=== PATIENT | male | born 1935 | race Caucasian/White ===

== ENCOUNTER 2017-09-24 10:36 | Observation (INO) | payer MEDICARE, BC ==
--- NOTE | 2017-09-24 11:05 | ED ---
General Adult HPI - General Stated complaint: Chest Pain Time Seen by Provider: 09/24/17 10:49 Source: patient, RN notes reviewed, old records reviewed Mode of arrival: EMS Limitations: no limitations - History of Present Illness Initial comments: This is an 79-year-old male the ER with chest pain. Patient with recurrent chest pain. Patient nitro with no help. Chest pain is persistent. Patient does have multiple risk factors for heart disease. Very concerned regarding causes chest pain cardiac in nature. No fever no cough or congestion, no current shortness of breath. No bowel pain nausea vomiting - Related Data Home Medications Medication Instructions Recorded Confirmed Ergocalciferol [Vitamin D2 50,000 unit PO TH 07/04/14 09/24/17 (DRISDOL)] amLODIPine [Norvasc] 5 mg PO DAILY 07/04/14 09/24/17 Carbidopa-Levodopa 25-100 mg 1 tab PO BID 09/24/17 09/24/17 [Sinemet 25-100] Dipyridamole-Aspirin 200-25 mg 1 tab PO BID 09/24/17 09/24/17 [Aggrenox] Losartan Potassium 50 mg PO DAILY 09/24/17 09/24/17 PARoxetine HCL [Paxil] 30 mg PO DAILY 09/24/17 09/24/17 metFORMIN HCL [Glucophage] 500 mg PO BID 09/24/17 09/24/17 rOPINIRole HCL [Requip] 0.5 mg PO BID 09/24/17 09/24/17 Allergies Allergy/AdvReac Type Severity Reaction Status Date / Time hydromorphone HCl AdvReac Nausea & Verified 09/24/17 11:37 [From Dilaudid] Vomiting Review of Systems ROS Statement: Those systems with pertinent positive or pertinent negative responses have been documented in the HPI. ROS Other: All systems not noted in ROS Statement are negative. Past Medical History Past Medical History: Diabetes Mellitus, Hyperlipidemia, Hypertension, Neurologic Disorder Additional Past Medical History / Comment(s): Parkinsons History of Any Multi-Drug Resistant Organisms: None Reported Past Surgical History: Adenoidectomy, Cholecystectomy, Hernia Repair, Prostate Surgery, Tonsillectomy Additional Past Surgical History / Comment(s): pmx: parkensons, essential tremor r arm Past Anesthesia/Blood Transfusion Reactions: No Reported Reaction Past Psychological History: No Psychological Hx Reported Smoking Status: Former smoker Past Alcohol Use History: None Reported, Rare Past Drug Use History: None Reported - Past Family History Father Family Medical History: Myocardial Infarction (ND) General Exam Limitations: no limitations General appearance: alert, in no apparent distress Head exam: Present: atraumatic, normocephalic, normal inspection Eye exam: Present: normal appearance, PERRL, EOMI. Absent: scleral icterus, conjunctival injection, periorbital swelling ENT exam: Present: normal exam, mucous membranes moist Neck exam: Present: normal inspection. Absent: tenderness, meningismus, lymphadenopathy Respiratory exam: Present: normal lung sounds bilaterally. Absent: respiratory distress, wheezes, rales, rhonchi, stridor Cardiovascular Exam: Present: regular rate, normal rhythm, normal heart sounds. Absent: systolic murmur, diastolic murmur, rubs, gallop, clicks GI/Abdominal exam: Present: soft, normal bowel sounds. Absent: distended, tenderness, guarding, rebound, rigid Extremities exam: Present: normal inspection, full ROM, normal capillary refill. Absent: tenderness, pedal edema, joint swelling, calf tenderness Back exam: Present: normal inspection Neurological exam: Present: alert, oriented X3, CN II-XII intact Psychiatric exam: Present: normal affect, normal mood Skin exam: Present: warm, dry, intact, normal color. Absent: rash Course Vital Signs 09/24/17 09/24/17 09/24/17 10:55 12:36 13:33 Temperature 98.6 F Pulse Rate 80 66 68 Respiratory 18 18 18 Rate Blood Pressure 134/82 146/86 153/84 O2 Sat by Pulse 94 L 98 96 Oximetry - Reevaluation(s) Reevaluation #1: 09/24/17 13:35 Medical record is reviewed Reevaluation #2: 09/24/17 13:35 Patient complains of chest pain EKG Findings - EKG Comments: EKG Findings:: EKG shows normal sinus rhythm rate of 79, NC 152, QRS 104, QTc 449 Medical Decision Making - Medical Decision Making 81 male the ER for evaluation positive chest pain. Patient be admitted for continued treatment of chest pain, cardiology evaluation - Lab Data Result diagrams: 09/24/17 11:10 09/24/17 11:10 Lab Results 09/24/17 09/24/17 09/24/17 Range/Units 11:10 11:10 11:10 WBC 6.3 (3.8-10.6) k/uL RBC 4.29 L (4.30-5.90) m/uL Hgb 13.4 (13.0-17.5) gm/dL Hct 39.6 (39.0-53.0) % MCV 92.3 (80.0-100.0) fL MCH 31.2 (25.0-35.0) pg MCHC 33.8 (31.0-37.0) g/dL RDW 13.6 (11.5-15.5) % Plt Count 166 (150-450) k/uL Neutrophils % 80 % Lymphocytes % 12 % Monocytes % 6 % Eosinophils % 1 % Basophils % 0 % Neutrophils # 5.0 (1.3-7.7) k/uL Lymphocytes # 0.8 L (1.0-4.8) k/uL Monocytes # 0.4 (0-1.0) k/uL Eosinophils # 0.1 (0-0.7) k/uL Basophils # 0.0 (0-0.2) k/uL PT (9.0-12.0) sec INR (<1.2) APTT (22.0-30.0) sec Sodium 140 (137-145) mmol/L Potassium 4.1 (3.5-5.1) mmol/L Chloride 104 (98-107) mmol/L Carbon Dioxide 30 (22-30) mmol/L Anion Gap 6 mmol/L BUN 30 H (9-20) mg/dL Creatinine 0.63 L (0.66-1.25) mg/dL Est GFR (CKD-EPI)AfAm >90 (>60 ml/min/1.73 sqM) Est GFR (CKD-EPI)NonAf >90 (>60 ml/min/1.73 sqM) Glucose 151 H (74-99) mg/dL Calcium 9.4 (8.4-10.2) mg/dL Magnesium 1.6 (1.6-2.3) mg/dL Total Bilirubin 0.3 (0.2-1.3) mg/dL AST 19 (17-59) U/L ALT 21 (21-72) U/L Alkaline Phosphatase 57 (38-126) U/L Total Creatine Kinase 33 L (55-170) U/L CK-MB (CK-2) 1.3 (0.0-2.4) ng/mL CK-MB (CK-2) Rel Index 3.9 Troponin I 0.014 (0.000-0.034) ng/mL Total Protein 6.3 (6.3-8.2) g/dL Albumin 4.0 (3.5-5.0) g/dL 09/24/17 Range/Units 11:10 WBC (3.8-10.6) k/uL RBC (4.30-5.90) m/uL Hgb (13.0-17.5) gm/dL Hct (39.0-53.0) % MCV (80.0-100.0) fL MCH (25.0-35.0) pg MCHC (31.0-37.0) g/dL RDW (11.5-15.5) % Plt Count (150-450) k/uL Neutrophils % % Lymphocytes % % Monocytes % % Eosinophils % % Basophils % % Neutrophils # (1.3-7.7) k/uL Lymphocytes # (1.0-4.8) k/uL Monocytes # (0-1.0) k/uL Eosinophils # (0-0.7) k/uL Basophils # (0-0.2) k/uL PT 10.1 (9.0-12.0) sec INR 1.0 (<1.2) APTT 22.4 (22.0-30.0) sec Sodium (137-145) mmol/L Potassium (3.5-5.1) mmol/L Chloride (98-107) mmol/L Carbon Dioxide (22-30) mmol/L Anion Gap mmol/L BUN (9-20) mg/dL Creatinine (0.66-1.25) mg/dL Est GFR (CKD-EPI)AfAm (>60 ml/min/1.73 sqM) Est GFR (CKD-EPI)NonAf (>60 ml/min/1.73 sqM) Glucose (74-99) mg/dL Calcium (8.4-10.2) mg/dL Magnesium (1.6-2.3) mg/dL Total Bilirubin (0.2-1.3) mg/dL AST (17-59) U/L ALT (21-72) U/L Alkaline Phosphatase (38-126) U/L Total Creatine Kinase (55-170) U/L CK-MB (CK-2) (0.0-2.4) ng/mL CK-MB (CK-2) Rel Index Troponin I (0.000-0.034) ng/mL Total Protein (6.3-8.2) g/dL Albumin (3.5-5.0) g/dL - Radiology Data Radiology results: report reviewed (Chest x-rays negative), image reviewed Critical Care Time Critical Care Time: Yes Total Critical Care Time: 31 Disposition Clinical Impression: Chest pain, Atypical chest pain, HTN (hypertension), Diabetes mellitus, Hyperlipemia Disposition: ADMITTED IP TO THIS [facility] Condition: Undetermined Instructions: Chest Pain (ED) Is patient prescribed a controlled substance at d/c from ED?: No Referrals: Maribel Murphy DO [Primary Care Provider] - 1-2 days
[2017-09-24 11:17] LABS: Basophils % (A) 0 %; Eosinophils # (A) 0.1 k/uL (0-0.7); Eosinophils % (A) 1 %; HCT 39.6 % (39.0-53.0); HGB 13.4 gm/dL (13.0-17.5); Lymphocytes # (A) 0.8 k/uL (1.0-4.8); Lymphocytes % (A) 12 %; MCH 31.2 pg (25.0-35.0); MCHC 33.8 g/dL (31.0-37.0); MCV 92.3 fL (80.0-100.0); Mean Platelet Volume 7.7; Monocytes # (A) 0.4 k/uL (0-1.0); Monocytes % (A) 6 %; Neutrophils % (A) 80 %; Platelet Count 166 k/uL (150-450); RBC 4.29 m/uL (4.30-5.90); RDW 13.6 % (11.5-15.5); WBC 6.3 k/uL (3.8-10.6)
[2017-09-24 11:29] LABS: ALT 21 U/L (21-72); AST 19 U/L (17-59); Alkaline Phosphatase 57 U/L (38-126); Anion Gap 6 mmol/L; Blood Urea Nitrogen 30 mg/dL (9-20); Calcium 9.4 mg/dL (8.4-10.2); Carbon Dioxide 30 mmol/L (22-30); Chloride 104 mmol/L (98-107); Glucose 151 mg/dL (74-99); Magnesium 1.6 mg/dL (1.6-2.3); Potassium 4.1 mmol/L (3.5-5.1); Sodium 140 mmol/L (137-145); Total Bilirubin 0.3 mg/dL (0.2-1.3); Total Protein 6.3 g/dL (6.3-8.2)
[2017-09-24 11:49] LABS: Partial Thromboplastin Time 22.4 sec (22.0-30.0); Prothrombin Time 10.1 sec (9.0-12.0)
[2017-09-24 11:54] LABS: Creatine Kinase MB 1.3 ng/mL (0.0-2.4); Troponin I 0.014 ng/mL (0.000-0.034)
--- NOTE | 2017-09-24 12:08 | XR ---
EXAMINATION TYPE: XR chest 2V DATE OF EXAM: 09/24/2017 COMPARISON: None HISTORY: 81-year-old male with chest pain TECHNIQUE: AP and lateral views FINDINGS: Heart normal size. Aorta and pulmonary vasculature within normal limits. No consolidation or pleural effusion. IMPRESSION: No acute cardiopulmonary process.
[2017-09-24] MEDS ORDERED: ASPIRIN 81 MG PO STA (13:33)
[2017-09-24] MEDS ORDERED: HEPARIN SODIUM,PORCINE 5,000 UNIT/ML 1 ML VIAL IV PRN (13:33)
[2017-09-24] MEDS ORDERED: NITROGLYCERIN SL TABS 0.4 MG TAB SUBLINGUAL PRN (13:33)
[2017-09-24] MEDS ORDERED: HEPARIN SODIUM,PORCINE 5,000 UNIT/ML 1 ML VIAL IV ONE (13:33)
[2017-09-24] MEDS ORDERED: HEPARIN SOD,PORK IN 0.45% NACL 25,000 UNIT in 0.45% NACL 1 500ML.BAG IV SCH (13:45)
--- NOTE | 2017-09-24 15:03 | P.HPIM ---
History of Present Illness H&P Date: 09/24/17 Chief Complaint: Chest pain This is a 81-year-old male, patient of Dr. Butt. He has a known past medical history of diabetes mellitus, hyperlipidemia, hypertension, CVA with some residual right-sided weakness and Parkinson's. Patient is a resident at [facility]. He reports having intermittent episodes of chest pain for about 10 days. He reports today's chest pain did not improve after 3 nitros therefore he came in for further evaluation. Patient reports the pain starting in the right side of the arm coming across the chest up into the left side of the jaw and down the left arm. He also is been having some nausea and an episode of vomiting today. Patient has no previous history of heart attack or cardiac stents. Patient had a stress test several years ago and wound reported as normal. Initial troponin was negative. EKG had shown a normal sinus rhythm with a left anterior fascicular block and nonspecific ST to T-wave abnormality. Chest x-ray showed no acute changes. Patient denies any shortness of breath. Denies any cough fever or chills or sweats. Denies any bowel movement changes or urinary symptoms. Patient is been placed on IV heparin and cardiology has been consulted. He'll be admitted to the observation floor. Patient was also started on aspirin and Lipitor in the ER Review of Systems Please refer to HPI otherwise unremarkable Past Medical History Past Medical History: CVA/TIA, Diabetes Mellitus, Hyperlipidemia, Hypertension, Neurologic Disorder Additional Past Medical History / Comment(s): Parkinsons, CVA with residual right-sided weakness History of Any Multi-Drug Resistant Organisms: None Reported Past Surgical History: Adenoidectomy, Cholecystectomy, Hernia Repair, Prostate Surgery, Tonsillectomy Additional Past Surgical History / Comment(s): pmx: parkensons, essential tremor r arm Past Anesthesia/Blood Transfusion Reactions: No Reported Reaction Past Psychological History: No Psychological Hx Reported Smoking Status: Former smoker Past Alcohol Use History: None Reported, Rare Past Drug Use History: None Reported - Past Family History Father Family Medical History: Myocardial Infarction (ND) Medications and Allergies Home Medications Medication Instructions Recorded Confirmed Type Ergocalciferol [Vitamin D2 50,000 unit PO TH 07/04/14 09/24/17 History (DAVY)] amLODIPine [Norvasc] 5 mg PO DAILY 07/04/14 09/24/17 History Carbidopa-Levodopa 25-100 mg 1 tab PO BID 09/24/17 09/24/17 History [Sinemet 25-100] Dipyridamole-Aspirin 200-25 mg 1 tab PO BID 09/24/17 09/24/17 History [Aggrenox] Losartan Potassium 50 mg PO DAILY 09/24/17 09/24/17 History PARoxetine HCL [Paxil] 30 mg PO DAILY 09/24/17 09/24/17 History metFORMIN HCL [Glucophage] 500 mg PO BID 09/24/17 09/24/17 History rOPINIRole HCL [Requip] 0.5 mg PO BID 09/24/17 09/24/17 History Allergies Allergy/AdvReac Type Severity Reaction Status Date / Time hydromorphone HCl AdvReac Nausea & Verified 09/24/17 11:37 [From Dilaudid] Vomiting Physical Exam Vitals: Vital Signs Temp Pulse Resp BP Pulse Ox 09/24/17 14:05 75 18 181/90 96 09/24/17 13:33 68 18 153/84 96 09/24/17 12:36 66 18 146/86 98 09/24/17 10:55 98.6 F 80 18 134/82 94 L Intake and Output 09/23/17 09/24/17 09/24/17 22:59 06:59 14:59 Other: Weight 63.503 kg Head normocephalic Neck supple Lungs clear to auscultation bilaterally no wheezing or crackles Heart regular rate and rhythm S1-S2, no rub or gallop Abdomen is soft nontender nondistended positive bowel sounds no hepatosplenomegaly Extremities no edema Neuro alert and orientated to 3 Results CBC & Chem 7: 09/24/17 11:10 09/24/17 11:10 Labs: Abnormal Lab Results - Last 24 Hours (Table) 09/24/17 09/24/17 09/24/17 Range/Units 11:10 11:10 11:10 RBC 4.29 L (4.30-5.90) m/uL Lymphocytes # 0.8 L (1.0-4.8) k/uL BUN 30 H (9-20) mg/dL Creatinine 0.63 L (0.66-1.25) mg/dL Glucose 151 H (74-99) mg/dL Total Creatine Kinase 33 L (55-170) U/L Assessment and Plan Assessment: 1. Chest pain: First troponin negative. EKG normal sinus rhythm with a left anterior fascicular block and nonspecific ST-T wave abnormality. Continue monitoring cardiac enzymes. Patient started on IV heparin, full aspirin and Lipitor. Cardiology consulted. Does have cardiac risk factors of diabetes hyperlipidemia and hypertension. Also past history of smoking quit 30 years ago. 2. Diabetes mellitus type 2: Hold metformin during hospitalization. Add NovoLog sliding scale coverage 3. Essential hypertension with elevated blood pressure in the ER. Continue to monitor. ER did place patient on metoprolol 25 mg twice a day. We'll resume patient's Norvasc and losartan 4. History of Parkinson's resume Sinemet 5. History of CVA resume Aggrenox GI prophylaxis Pepcid and DVT prophylaxis IV heparin Time with Patient: Greater than 30 (Greater than 60% of the total time spent in counseling and coordination of care.I performed an examination of the patient and discussed their management with the physician Switcher. I have reviewed the Physician Switcher's notes and agree with the documented findings and plan of care)
[2017-09-24 19:05] LABS: Creatine Kinase MB 1.5 ng/mL (0.0-2.4); Troponin I 0.025 ng/mL (0.000-0.034)
[2017-09-24] MEDS: INSULIN ASPART 100 UNIT/ML 1 ML 10 ML VIAL SQ SCH ×2 (19:32→21:51)
[2017-09-24 20:15] LABS: Glucose,Whole Blood 160 mg/dL (75-99)
[2017-09-24] MEDS: CARBIDOPA-LEVODOPA 25-100 MG 1 EACH TAB PO SCH (20:26)
[2017-09-24] MEDS: DIPYRIDAMOLE-ASPIRIN 200-25 MG 1 EACH CPMP.12HR PO SCH (20:26)
[2017-09-24] MEDS: METOPROLOL TARTRATE 25 MG TAB PO SCH (21:50)
[2017-09-24] MEDS: PARoxetine 10 MG TAB PO SCH (21:50)
[2017-09-24 22:57] LABS: Creatine Kinase MB 1.4 ng/mL (0.0-2.4); Troponin I 0.025 ng/mL (0.000-0.034)
[2017-09-25 01:41] LABS: Hemoglobin A1C 6.8 % (4.0-6.0)
[2017-09-25 05:51] LABS: Mean Platelet Volume 7.6; Platelet Count 153 k/uL (150-450)
[2017-09-25 06:51] LABS: Glucose,Whole Blood 105 mg/dL (75-99)
[2017-09-25 07:33] LABS: Cholesterol 210 mg/dL (<200); HDL Cholesterol 64 mg/dL (40-60); LDL Cholesterol,Calculated 125 mg/dL (0-99); Triglycerides 106 mg/dL (<150)
[2017-09-25 08:38] LABS: Basophils % (A) 1 %; Eosinophils # (A) 0.1 k/uL (0-0.7); Eosinophils % (A) 2 %; HCT 39.5 % (39.0-53.0); HGB 13.2 gm/dL (13.0-17.5); Lymphocytes # (A) 1.4 k/uL (1.0-4.8); Lymphocytes % (A) 27 %; MCHC 33.3 g/dL (31.0-37.0); MCV 93.1 fL (80.0-100.0); Mean Platelet Volume 7.8; Monocytes # (A) 0.4 k/uL (0-1.0); Monocytes % (A) 8 %; Neutrophils # (A) 3.2 k/uL (1.3-7.7); Neutrophils % (A) 61 %; Platelet Count 153 k/uL (150-450); RBC 4.25 m/uL (4.30-5.90); RDW 13.7 % (11.5-15.5); WBC 5.2 k/uL (3.8-10.6)
--- NOTE | 2017-09-25 08:39 | CONS ---
CONSULTATION This is an 82-year-old male patient who is a patient of Dr. Murphy and lives in [facility]. He presented with recurrent vomiting and some chest discomfort. When I asked him exactly where the chest discomfort was, he pointed to multiple areas including the arms, shoulders. specify that the chest pain is, he pointed to his right arm. These symptoms have been ongoing for at least for 1 to 2 weeks. REVIEW OF SYSTEMS: No fever, chills, or rigors. No cough or expectoration. He did have nausea and vomiting. No diarrhea. No hematuria or dysuria. No strokes or seizures at this time. PAST MEDICAL HISTORY: Past medical history of CVA, diabetes, dyslipidemia, hypertension, and Parkinson's with residual right-sided weakness and Parkinson disease. PAST SURGICAL HISTORY: Cholecystectomy, adenoidectomy, hernia surgery, prostate surgery, tonsillectomy. SOCIAL HISTORY: He is a former smoker. MEDICATIONS: Home medications include vitamin D, amlodipine, Sinemet, Aggrenox, losartan, Paxil, Glucophage and Requip. ALLERGIES: Allergies to DILAUDID. PHYSICAL EXAMINATION: On examination, his blood pressure was elevated upon admission and this morning and 162/84 mmHg. Respirations are normal. Heart rate is in the 60s. Afebrile 97.7 degrees Fahrenheit. Head and neck examination is normal. Heart sounds S1, S2 normal. No murmurs or gallops. No rub. Extremities are warm, no edema. Abdomen is soft, nontender. Breath sounds are clear. No rhonchi, no crackles. LABS: His labs were reviewed. Sodium 140, potassium 4.1, BUN 30, creatinine 0.6. Hemoglobin A1c is 6.8. LDL 125, total cholesterol 210. IMPRESSION: Nausea, vomiting, and atypical chest and arm pain with the first cardiac enzyme that is normal. The 12-lead ECG shows sinus rhythm, normal SD, narrow QRS, asymmetric T-wave inversions, biphasic with anterior fascicular block. SUGGEST: 1. A 2-D echo and Doppler study. 2. For hypertension management, I would restart amlodipine which he takes at 5 mg once daily and if needed this can be increased to twice daily. The other option is to increase losartan to 100 mg p.o. daily. 3. Continue atorvastatin 80 mg p.o. daily and continue antiplatelet agents. 4. Medical management for atypical chest discomfort. 5. Diabetes management as per primary care physician. 6. Hypertension management with increasing doses of amlodipine or losartan if his blood pressure is consistently elevated. Thank you for the consultation. PAULA / LAVONN: [id number] /
[2017-09-25 08:52] LABS: ALT 24 U/L (21-72); AST 22 U/L (17-59); Albumin 3.7 g/dL (3.5-5.0); Alkaline Phosphatase 62 U/L (38-126); Anion Gap 6 mmol/L; Blood Urea Nitrogen 23 mg/dL (9-20); Calcium 9.3 mg/dL (8.4-10.2); Carbon Dioxide 30 mmol/L (22-30); Chloride 104 mmol/L (98-107); Glucose 103 mg/dL (74-99); Potassium 4.4 mmol/L (3.5-5.1); Sodium 140 mmol/L (137-145); Total Bilirubin 0.5 mg/dL (0.2-1.3); Total Protein 6.1 g/dL (6.3-8.2)
[2017-09-25] MEDS ORDERED: PARoxetine 10 MG TAB PO SCH (09:00)
[2017-09-25] MEDS ORDERED: ASPIRIN 325 MG TAB PO SCH (09:00)
[2017-09-25] MEDS ORDERED: LOSARTAN 50 MG TAB PO SCH (09:00)
[2017-09-25] MEDS: INSULIN ASPART 100 UNIT/ML 1 ML 10 ML VIAL SQ SCH ×3 (11:30→18:50)
[2017-09-25] MEDS: PARoxetine 10 MG TAB PO SCH (11:35)
[2017-09-25] MEDS: METOPROLOL TARTRATE 25 MG TAB PO SCH ×2 (11:36→22:39)
[2017-09-25] MEDS: ASPIRIN 81 MG PO SCH (11:36)
[2017-09-25] MEDS: ATORVASTATIN 80 MG TAB PO SCH (11:36)
[2017-09-25] MEDS: amLODIPine 5 MG TAB PO SCH (11:36)
[2017-09-25] MEDS: FAMOTIDINE 20 MG TAB PO SCH (11:36)
[2017-09-25] MEDS: DIPYRIDAMOLE-ASPIRIN 200-25 MG 1 EACH CPMP.12HR PO SCH ×2 (11:36→22:40)
[2017-09-25] MEDS: CARBIDOPA-LEVODOPA 25-100 MG 1 EACH TAB PO SCH ×2 (11:36→22:40)
[2017-09-25] MEDS: LOSARTAN 50 MG TAB PO SCH ×2 (11:37→22:40)
[2017-09-25 12:34] LABS: Glucose,Whole Blood 264 mg/dL (75-99)
--- NOTE | 2017-09-25 15:49 | P.PN ---
Subjective Progress Note Date: 09/25/17 This is a 81-year-old male, patient of Dr. Butt. He has a known past medical history of diabetes mellitus, hyperlipidemia, hypertension, CVA with some residual right-sided weakness and Parkinson's. Patient is a resident at [facility]. He reports having intermittent episodes of chest pain for about 10 days. He reports today's chest pain did not improve after 3 nitros therefore he came in for further evaluation. Patient reports the pain starting in the right side of the arm coming across the chest up into the left side of the jaw and down the left arm. He also is been having some nausea and an episode of vomiting today. Patient has no previous history of heart attack or cardiac stents. Patient had a stress test several years ago and wound reported as normal. Initial troponin was negative. EKG had shown a normal sinus rhythm with a left anterior fascicular block and nonspecific ST to T-wave abnormality. Chest x-ray showed no acute changes. Patient denies any shortness of breath. Denies any cough fever or chills or sweats. Denies any bowel movement changes or urinary symptoms. Patient is been placed on IV heparin and cardiology has been consulted. He'll be admitted to the observation floor. Patient was also started on aspirin and Lipitor in the ER. On 09/25/2017 2-D echo has been completed per cardiology awaiting results. losartan has been increased to 100 mg by mouth daily. Heparin drip has been discontinued. Stress test will be ordered for tomorrow. Patient denies chest pain at this time. No shortness of breath. Family requesting possible arrangement for altered monitoring outpatient. Objective - Vital Signs Vital signs: Vital Signs Temp 97.4 F L 09/25/17 12:00 Pulse 61 09/25/17 12:00 Resp 16 09/25/17 15:21 BP 176/85 09/25/17 12:00 Pulse Ox 97 09/25/17 12:00 Intake & Output 09/24/17 09/25/17 09/25/17 18:59 06:59 18:59 Intake Total 136.906 118 Balance 136.906 118 Weight 64.5 kg Intake: Intake, IV Titration 136.906 Amount Heparin Sod,Pork in 0.45% 136.906 NaCl 25,000 unit In 0.45 % NaCl 1 500ml.bag @ 12 UNITS/KG/HR 15.24 mls/hr IV .Q24H PENDING SALE TO [facility] Rx#: [id number] Oral 118 Other: Voiding Method Toilet Toilet # Voids 3 # Bowel Movements 1 - Exam Head normocephalic Neck supple Lungs clear to auscultation bilaterally no wheezing or crackles Heart regular rate and rhythm S1-S2, no rub or gallop Abdomen is soft nontender nondistended positive bowel sounds no hepatosplenomegaly Extremities no edema Neuro alert and orientated to 3. - Labs CBC & Chem 7: 09/25/17 05:37 09/25/17 05:37 Labs: Abnormal Lab Results - Last 24 Hours (Table) 09/24/17 09/24/17 09/24/17 Range/Units 17:15 17:15 20:12 RBC (4.30-5.90) m/uL APTT (22.0-30.0) sec BUN (9-20) mg/dL Glucose (74-99) mg/dL POC Glucose (mg/dL) 160 H (75-99) mg/dL Hemoglobin A1c 6.8 H (4.0-6.0) % Total Creatine Kinase 34 L (55-170) U/L Total Protein (6.3-8.2) g/dL Cholesterol (<200) mg/dL LDL Cholesterol, Calc (0-99) mg/dL HDL Cholesterol (40-60) mg/dL 09/24/17 09/24/17 09/25/17 Range/Units 20:37 22:17 05:37 RBC (4.30-5.90) m/uL APTT 39.8 H (22.0-30.0) sec BUN (9-20) mg/dL Glucose (74-99) mg/dL POC Glucose (mg/dL) (75-99) mg/dL Hemoglobin A1c (4.0-6.0) % Total Creatine Kinase 46 L (55-170) U/L Total Protein (6.3-8.2) g/dL Cholesterol 210 H (<200) mg/dL LDL Cholesterol, Calc 125 H (0-99) mg/dL HDL Cholesterol 64 H (40-60) mg/dL 09/25/17 09/25/17 09/25/17 Range/Units 05:37 05:37 05:37 RBC 4.25 L (4.30-5.90) m/uL APTT 44.3 H (22.0-30.0) sec BUN 23 H (9-20) mg/dL Glucose 103 H (74-99) mg/dL POC Glucose (mg/dL) (75-99) mg/dL Hemoglobin A1c (4.0-6.0) % Total Creatine Kinase (55-170) U/L Total Protein 6.1 L (6.3-8.2) g/dL Cholesterol (<200) mg/dL LDL Cholesterol, Calc (0-99) mg/dL HDL Cholesterol (40-60) mg/dL 09/25/17 09/25/17 Range/Units 06:49 12:32 RBC (4.30-5.90) m/uL APTT (22.0-30.0) sec BUN (9-20) mg/dL Glucose (74-99) mg/dL POC Glucose (mg/dL) 105 H 264 H (75-99) mg/dL Hemoglobin A1c (4.0-6.0) % Total Creatine Kinase (55-170) U/L Total Protein (6.3-8.2) g/dL Cholesterol (<200) mg/dL LDL Cholesterol, Calc (0-99) mg/dL HDL Cholesterol (40-60) mg/dL Assessment and Plan Assessment: 1. Chest pain: First troponin negative. EKG normal sinus rhythm with a left anterior fascicular block and nonspecific ST-T wave abnormality. Continue monitoring cardiac enzymes. Patient started on IV heparin, full aspirin and Lipitor. Cardiology consulted. Does have cardiac risk factors of diabetes hyperlipidemia and hypertension. Also past history of smoking quit 30 years ago. Troponin levels 0.014, 0.025 and 0.025. Cardiology has ordered a 2-D echo awaiting results. Stress test will be ordered for morning 2. Diabetes mellitus type 2: Hold metformin during hospitalization. Add NovoLog sliding scale coverage 3. Essential hypertension with elevated blood pressure in the ER. Continue to monitor. ER did place patient on metoprolol 25 mg twice a day. We'll resume patient's Norvasc and losartan. Losartan has been increasing twice a day. 4. History of Parkinson's resume Sinemet 5. History of CVA resume Aggrenox Requesting possible arrangement for Holter monitor outpatient. GI prophylaxis Pepcid I performed an examination of the patient and discussed their management with the Nurse Practitioner. I have reviewed the Nurse Practitioner's notes and agree with the documented findings and plan of care
[2017-09-25 17:05] LABS: Glucose,Whole Blood 118 mg/dL (75-99)
[2017-09-25 22:53] LABS: Glucose,Whole Blood 133 mg/dL (75-99)
[2017-09-26] MEDS: INSULIN ASPART 100 UNIT/ML 1 ML 10 ML VIAL SQ SCH ×3 (04:24→13:32)
[2017-09-26 06:55] LABS: Basophils % (A) 1 %; Eosinophils # (A) 0.1 k/uL (0-0.7); Eosinophils % (A) 1 %; HCT 40.7 % (39.0-53.0); HGB 13.6 gm/dL (13.0-17.5); Lymphocytes # (A) 1.2 k/uL (1.0-4.8); Lymphocytes % (A) 23 %; MCH 30.8 pg (25.0-35.0); MCHC 33.3 g/dL (31.0-37.0); MCV 92.5 fL (80.0-100.0); Mean Platelet Volume 7.4; Monocytes # (A) 0.5 k/uL (0-1.0); Monocytes % (A) 9 %; Neutrophils # (A) 3.2 k/uL (1.3-7.7); Neutrophils % (A) 63 %; Platelet Count 173 k/uL (150-450); RDW 13.8 % (11.5-15.5)
[2017-09-26 07:02] LABS: ALT 20 U/L (21-72); AST 20 U/L (17-59); Alkaline Phosphatase 62 U/L (38-126); Anion Gap 3 mmol/L; Blood Urea Nitrogen 19 mg/dL (9-20); Calcium 9.3 mg/dL (8.4-10.2); Carbon Dioxide 34 mmol/L (22-30); Chloride 101 mmol/L (98-107); Glucose 151 mg/dL (74-99); Potassium 3.8 mmol/L (3.5-5.1); Sodium 138 mmol/L (137-145); Total Bilirubin 0.5 mg/dL (0.2-1.3); Total Protein 6.4 g/dL (6.3-8.2)
[2017-09-26 07:16] VITALS: RESP 16; TEMP 97.6
[2017-09-26 07:43] LABS: Glucose,Whole Blood 132 mg/dL (75-99)
[2017-09-26] MEDS: ATORVASTATIN 80 MG TAB PO SCH (08:31)
[2017-09-26] MEDS: FAMOTIDINE 20 MG TAB PO SCH (08:35)
[2017-09-26] MEDS: DIPYRIDAMOLE-ASPIRIN 200-25 MG 1 EACH CPMP.12HR PO SCH (08:45)
[2017-09-26] MEDS: amLODIPine 5 MG TAB PO SCH (08:45)
[2017-09-26] MEDS: LOSARTAN 50 MG TAB PO SCH (08:45)
[2017-09-26] MEDS: ASPIRIN 81 MG PO SCH (08:45)
[2017-09-26] MEDS: CARBIDOPA-LEVODOPA 25-100 MG 1 EACH TAB PO SCH (08:46)
[2017-09-26] MEDS: METOPROLOL TARTRATE 25 MG TAB PO SCH (08:46)
[2017-09-26] MEDS: PARoxetine 10 MG TAB PO SCH (08:46)
[2017-09-26] MEDS ORDERED: ERGOCALCIFEROL 50,000 UNIT CAP PO SCH (09:00)
--- NOTE | 2017-09-26 10:21 | ECHOF ---
Referral Reason:chest pain MEASUREMENTS -------- HEIGHT: 170.2 cm WEIGHT: 64.4 kg BP: 162/84 RVIDd: 3.0 cm (< 3.3) IVSd: 1.3 cm (0.6 - 1.1) LVIDd: 4.8 cm (3.9 - 5.3) LVPWd: 1.3 cm (0.6 - 1.1) IVSs: 1.7 cm LVIDs: 3.0 cm LVPWs: 1.7 cm LAESV Index (A-L): 40.13 ml/m Ao Diam: 3.0 cm (2.0 - 3.7) AV Cusp: 1.7 cm (1.5 - 2.6) LA Diam: 3.0 cm (2.7 - 3.8) EPSS: 0.9 cm MV E [place]: 0.60 m/s MV DecT: 488 ms MV A [place]: 1.13 m/s MV E/A Ratio: 0.53 AV maxP.28 mmHg AV meanP.46 mmHg RAP: 5.00 mmHg RVSP: 22.02 mmHg MV EF SLOPE: 108.61 mm/s (70 - 150) MV EXCURSION: 1.35 cm (> 18.000) FINDINGS -------- Sinus rhythm. This was a technically good study. The left ventricular size is normal. There is mild concentric left ventricular hypertrophy. Overa ll left ventricular systolic function is normal with, an EF between 55 - 60 %. The right ventricle is mildly enlarged. LA is severely dilated >40 ml/m2 RA appears enlarged. Aortic valve is trileaflet and is mildly thickened. Trace to mild aortic regurgitation. There is no evidence of aortic stenosis. The mitral valve leaflets are mildly thickened. Mild mitral regurgitation is present. Trace tricuspid regurgitation present. Right ventricular systolic pressure is normal at < 35 mmHg. There is no evidence of pulmonary hypertension. Trace/mild (physiologic) pulmonic regurgitation. The aortic root size is normal. Normal inferior vena cava with normal inspiratory collapse consistent with estimated right atrial pre ssure of 5 mmHg. There is no pericardial effusion. CONCLUSIONS -------- 1. Sinus rhythm. 2. This was a technically good study. 3. The left ventricular size is normal. 4. There is mild concentric left ventricular hypertrophy. 5. Overall left ventricular systolic function is normal with, an EF between 55 - 60 %. 6. The right ventricle is mildly enlarged. 7. LA is severely dilated >40 ml/m2 8. RA appears enlarged. 9. Aortic valve is trileaflet and is mildly thickened. 10. Trace to mild aortic regurgitation. 11. The mitral valve leaflets are mildly thickened. 12. Mild mitral regurgitation is present. 13. Trace tricuspid regurgitation present. 14. Right ventricular systolic pressure is normal at < 35 mmHg. 15. There is no evidence of pulmonary hypertension. 16. Trace/mild (physiologic) pulmonic regurgitation. 17. The aortic root size is normal. 18. There is no pericardial effusion. EDUCATIONAL FUNDRAISING DIRECTOR: Maxx Fulton RDCS
[2017-09-26 12:08] LABS: Glucose,Whole Blood 135 mg/dL (75-99)
--- NOTE | 2017-09-26 15:50 | P.DS ---
Providers Date of admission: 09/24/17 13:35 Expected date of discharge: 09/26/17 Attending physician: Aurelio Calloway Consults: 09/24/17 13:33 Consult Physician Urgent Consulting Provider: Inocencio Porter Consult Reason/Comments: cp Do you want consulting provider notified?: Yes Primary care physician: Maribel Katherine [facility] Course: Discharge diagnosis 1. Chest pain: [place] ruled out. EKG normal sinus rhythm with a left anterior fascicular block and nonspecific ST-T wave abnormality. Troponins negative 3 sets. Echo shows an EF of 55-60%. Initially a stress test ordered by Dr. Calloway. However, family refusing to have stress tests completed during this admission. Lipitor 20 mg at bedtime and aspirin 81 mg daily added. Cholesterol 210 LDL 125 HDL 64 2. Diabetes mellitus type 2 3. Hypertensive urgency: Hypertensive medications adjusted during this admission. Norvasc increased to 5 mg twice a day losartan increased to 50 mg twice a day metoprolol 25 mg twice a day added 4. History of Parkinson's resume Sinemet 5. History of CVA resume Aggrenox Hospital course This is a 81-year-old male, patient of Dr. Butt. He has a known past medical history of diabetes mellitus, hyperlipidemia, hypertension, CVA with some residual right-sided weakness and Parkinson's. Patient is a resident at [facility]. He reports having intermittent episodes of chest pain for about 10 days. He reports today's chest pain did not improve after 3 nitros therefore he came in for further evaluation. Patient reports the pain starting in the right side of the arm coming across the chest up into the left side of the jaw and down the left arm. He also is been having some nausea and an episode of vomiting today. Patient has no previous history of heart attack or cardiac stents. Patient had a stress test several years ago and wound reported as normal. Initial troponin was negative. EKG had shown a normal sinus rhythm with a left anterior fascicular block and nonspecific ST to T-wave abnormality. Chest x-ray showed no acute changes. Patient denies any shortness of breath. Denies any cough fever or chills or sweats. Denies any bowel movement changes or urinary symptoms. Patient is been placed on IV heparin and cardiology has been consulted. He'll be admitted to the observation floor. Patient was also started on aspirin and Lipitor in the ER. [place] ruled out during this admission. Patient seen evaluated by cardiology. Patient had echo completed showing an EF of 55-60%. Patient did have hypertensive urgency during this admission requiring adjustment in his medications. Also patient's anxiety and agitation from his sundowning could be contributing to some of the elevated blood pressures as well. We'll have him follow-up outpatient for further adjustment of medications. Patient has been cleared by cardiology for discharge. Again note that stress test was offered to patient. Family refused to have stress tests completed during this admission. They're requesting that stress test be done outpatient. Family also requesting for a Holter monitor. This can be set up as outpatient as well with cardiology office or his PCP. Patient is medically stable for discharge. Please refer to chart for any further details. I performed an examination of the patient and discussed their management with the physician Lead Nurse. I have reviewed the Physician Lead Nurse's notes and agree with the documented findings and plan of care Patient Condition at Discharge: Stable Plan - Discharge Summary Discharge Rx Participant: No New Discharge Prescriptions: New amLODIPine [Norvasc] 5 mg PO BID #60 tab Aspirin 81 mg PO DAILY #30 chew Losartan [Cozaar] 50 mg PO BID #60 tab Metoprolol Tartrate [Lopressor] 25 mg PO BID #60 tab Atorvastatin Calcium [Lipitor] 20 mg PO HS #30 tab Continue Ergocalciferol [Vitamin D2 (DRISDOL)] 50,000 unit PO CHOWDHURY rOPINIRole HCL [Requip] 0.5 mg PO BID metFORMIN HCL [Glucophage] 500 mg PO BID PARoxetine HCL [Paxil] 30 mg PO DAILY Dipyridamole-Aspirin 200-25 mg [Aggrenox 25MG -200MG] 1 tab PO BID Carbidopa-Levodopa 25-100 mg [Sinemet 25-100 mg] 1 tab PO BID Discontinued amLODIPine [Norvasc] 5 mg PO DAILY Losartan Potassium 50 mg PO DAILY Discharge Medication List Ergocalciferol [Vitamin D2 (DRISDOL)] 50,000 unit PO CHOWDHURY 07/04/14 [History] Carbidopa-Levodopa 25-100 mg [Sinemet 25-100 mg] 1 tab PO BID 09/24/17 [History] Dipyridamole-Aspirin 200-25 mg [Aggrenox 25MG -200MG] 1 tab PO BID 09/24/17 [ History] PARoxetine HCL [Paxil] 30 mg PO DAILY 09/24/17 [History] metFORMIN HCL [Glucophage] 500 mg PO BID 09/24/17 [History] rOPINIRole HCL [Requip] 0.5 mg PO BID 09/24/17 [History] Aspirin 81 mg PO DAILY #30 chew 09/26/17 [Rx] Atorvastatin Calcium [Lipitor] 20 mg PO HS #30 tab 09/26/17 [Rx] Losartan [Cozaar] 50 mg PO BID #60 tab 09/26/17 [Rx] Metoprolol Tartrate [Lopressor] 25 mg PO BID #60 tab 09/26/17 [Rx] amLODIPine [Norvasc] 5 mg PO BID #60 tab 09/26/17 [Rx] Follow up Appointment(s)/Referral(s): Chepe Shafer MD [STAFF PHYSICIAN] - 6 Weeks (Office will call with an appointment) Maribel Murphy DO [Primary Care Provider] - 1 Week Patient Instructions/Handouts: Chest Pain (ED) Activity/Diet/Wound Care/Special Instructions: Diet: cardiac Activity: as tolerated Discharge Disposition: HOME SELF-CARE
[2017-09-26 16:02] VITALS: BP 180/79; PULSE 63
[2017-09-26] MEDS ORDERED: amLODIPine 5 MG TAB PO SCH (21:00)
== END 2017-09-26 16:38 | disposition home or self-care (01) ==
LOC: EC 10:36 → 3OBS 13:35
PROVIDERS: ADMIT Internal Medicine; ATTEND Internal Medicine
DX: R07.89 Other chest pain (principal); E11.9 Type 2 diabetes mellitus without complications; G20 Parkinson's disease; I69.351 Hemiplegia and hemiparesis following cerebral infarction affecting right dominant side; E78.5 Hyperlipidemia, unspecified; I10 Essential (primary) hypertension; I16.0 Hypertensive urgency; F41.9 Anxiety disorder, unspecified; F05 Delirium due to known physiological condition; R11.2 Nausea with vomiting, unspecified; R45.1 Restlessness and agitation; I44.4 Left anterior fascicular block; Z87.891 Personal history of nicotine dependence; Z79.84 Long term (current) use of oral hypoglycemic drugs; Z79.899 Other long term (current) drug therapy; Z88.5 Allergy status to narcotic agent; Z82.49 Family history of ischemic heart disease and other diseases of the circulatory system
CPT/HCPCS: 99291 ×2; 96365 ×2; 96366 ×6; 96376 ×2; 36415; 93005; 93306; 80061; 80053 ×3; 82550; 82553; 83735; 84484; 85025 ×3; 85049; 85610; 85730 ×2; 83036; 71046; G0378 ×3; J1644 ×2

== ENCOUNTER → 2017-10-17 | Outpatient (CLI) | payer MEDICARE, BC | LOC: RADECHMAIN 12:07 | PROVIDERS: ATTEND Family Medicine | DX: I49.9 Cardiac arrhythmia, unspecified (principal); I20.9 Angina pectoris, unspecified | CPT/HCPCS: 93270; 93271 ==

== ENCOUNTER → 2018-03-27 | Outpatient (CLI) | payer MEDICARE, BC ==
--- NOTE | 2018-03-27 16:17 | CONS ---
CONSULTATION ADDENDUM: Correction to dictation just completed: I dictated that patient has history of prostate cancer and had prostatectomy, but it was not prostate cancer. CORRECTED: Benign prostatic hypertrophy with 80% resection of prostate. MMODL / IJN: [id number] /
--- NOTE | 2018-03-27 16:26 | CONS ---
CONSULTATION DATE OF SERVICE: 03/27/2018 82-year-old gentleman who has been evaluated in the sleep center for possible obstructive sleep apnea-hypopnea syndrome. HISTORY OF PRESENT ILLNESS/SLEEP WAKE EVALUATION: SLEEP SCHEDULE: Patient usual sleep schedule from 9:00 p.m. to 7 or 8 a.m. FALLING ASLEEP: Sometimes he has problem with falling asleep, although no TV in the bedroom. DURING SLEEP: He usually sleeps on the side position. According to the family, he snores and has episodes of stopped breathing during the sleep. He wakes up from sleep with dry mouth, restless legs, sleep talking and nocturia. DURING THE DAY/SLEEP WAKE EVALUATION: In the morning patient wakes up tired, has difficulties to pay attention, falling asleep during the day, has problems with memory, concentration, irritability, depression and anxiety. [place] Sleepiness Scale significantly increased to 12. PAST MEDICAL HISTORY: Positive for hypertension, coronary artery disease, diabetes mellitus, Parkinson's, prostate CA, depression, anxiety, hypothalamic mass, stroke in 2014 with weakness and changes of sensation on the left side with some residual numbness in left hand presently. PAST SURGICAL HISTORY: Prostatectomy, 5 stent insertions, cholecystectomy, bilateral cataract surgery, tonsillectomy. MEDICATIONS: Sinemet, Plavix, aspirin, Norvasc, metoprolol, Requip, vitamin B12 and D3, metformin, Paxil, losartan, nitroglycerin, Zofran. SOCIAL HISTORY: Positive for smoking for about 15 years. Quit 40 years ago. Alcohol consumption none at the present time. FAMILY HISTORY: Hypertension, heart problems, stroke. REVIEW OF SYSTEMS: Awakenings from sleep, tiredness and sleepiness during the day. Patient takes 2 naps at 10:00 am and 4:00 pm. Numbness in left hand, tremor. PHYSICAL EXAMINATION: During physical exam, a gentleman without distress BP 158/84, HR 67, RR 16, height 5 feet 7 inches, weight 149.2, body mass index 23.3, temperature 97.3, O2 saturation at room air 96%. Oropharynx: Low position of soft palate. Wide pillars, slight systolic murmur on aorta. Neck Supple, no JVD. Thyroid is not palpable. LUNGS Clear to percussion and to auscultation. Good air exchange. No wheezing or rhonchi. HEART S1, S2 regular. No murmurs, gallops, or rubs. ABDOMEN Soft and nontender. Bowel sounds are present. No organomegaly appreciated. EXTREMITIES No clubbing or cyanosis. 1+ bilateral to ankle edema. 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 Mild finger tremor. Slight numbness in the left hand. IMPRESSION: 1. Snoring, witnessed episodes of stopped breathing during the sleep. Small oropharyngeal air space, sleepiness, possible obstructive sleep apnea-hypopnea syndrome. 2. Parkinson disease. 3. Coronary artery disease, status post 5 stent insertion. 4. Hypertension. 5. Diabetes mellitus. 6. History of prostate carcinoma status post prostatectomy. 7. History of depression. 8. History of anxiety. 9. Status post cholecystectomy. 10.Status post tonsillectomy. 11.Status post bilateral cataract surgery. 12.History of stroke in 2015 with hyperthalamic lesions and weakness on the left side. Presently, the patient still has numbness in left hand. 13.1+ bilateral ankle edema. PLAN: 1. Polysomnography for evaluation of patient's breathing during sleep. 2. CPAP/BiPAP titration if sleep study confirms obstructive sleep apnea-hypopnea syndrome. 3. Preferable position during sleep on the side. 4. No driving if patient feels any sleepiness. 5. I will see patient for follow up visit to explain results of testing and following plan. Thank you very much for referring this patient for consultation. Sincerely, Hair Persaud MD, PhD, FAASM Diplomat of [employer] General Foundry Worker of [facility] [place] MMODL / IJN: [id number] /
== END ==
LOC: SLEEP 14:03
PROVIDERS: ATTEND Internal Medicine
DX: R06.83 Snoring (principal); I25.10 Atherosclerotic heart disease of native coronary artery without angina pectoris; G20 Parkinson's disease; I10 Essential (primary) hypertension; E11.9 Type 2 diabetes mellitus without complications; F32.9 Major depressive disorder, single episode, unspecified; F41.9 Anxiety disorder, unspecified; Z90.49 Acquired absence of other specified parts of digestive tract; Z85.46 Personal history of malignant neoplasm of prostate; Z98.890 Other specified postprocedural states; Z90.89 Acquired absence of other organs; Z98.42 Cataract extraction status, left eye; Z98.41 Cataract extraction status, right eye; Z90.79 Acquired absence of other genital organ(s); Z86.73 Personal history of transient ischemic attack (TIA), and cerebral infarction without residual deficits; Z99.89 Dependence on other enabling machines and devices; Z79.899 Other long term (current) drug therapy; Z79.02 Long term (current) use of antithrombotics/antiplatelets; Z79.82 Long term (current) use of aspirin; Z79.84 Long term (current) use of oral hypoglycemic drugs; Z87.891 Personal history of nicotine dependence
CPT/HCPCS: 99211

== ENCOUNTER → 2018-06-19 | Outpatient (CLI) | payer MEDICARE, BC ==
--- NOTE | 2018-06-19 19:57 | PN ---
PROGRESS NOTE DATE OF SERVICE: 06/19/2018. 82-year-old gentleman has been followed in the Sleep Center for treatment of central and obstructive sleep apnea-hypopnea syndrome. The patient had home sleep apnea test and I discussed results of home sleep apnea test with the patient and family in detail. Test showed 220 central and mixed apneas and 179 obstructive apneas and 43 hypopneas with total apnea-hypopnea index 35, and oxygen desaturation to 82%. By decision of patient and family, it was preference to start patient on auto PAP, which we tried and patient started to use auto PAP machine with low range of the pressure 5-12 cm of water. The patient is trying to use CPAP equipment every night for the whole night. He has difficulties with falling asleep, but able to use CPAP equipment. [place] Sleepiness Scale today increased to 13. I checked CPAP unit. Pressure is in the range 5-12 cm of water. With the reading for the last month, pressure is 11.4. Patient used it 28 out of 30 nights at 19 out of 30 nights more than 4 hours. Average usage is 6.0 hours. Leak for the last month is 46 L/minute. Apnea-hypopnea index for the last month 12.8 with a central apnea index 1.1. A nasal mask was changed to the full-face mask several weeks ago. CURRENT MEDICATIONS: Sinemet, Plavix, aspirin, Norvasc, metoprolol, Requip, vitamin B12 and D3, metformin, Paxil, losartan, nitroglycerin, Zofran. PHYSICAL EXAM: gentleman without distress. BP 153/87, HR 62, RR 16, weight 150, temp 97.9. Oxygen saturation at room air 96%. Oropharynx: Low position of soft palate. HEART: S1, S2. Slight systolic murmur in aorta. Neck Supple, no JVD. Thyroid is not palpable. LUNGS Clear to percussion and to auscultation. Good air exchange. No wheezing or rhonchi. HEART S1, S2 regular. No murmurs, gallops, or rubs. ABDOMEN Soft and nontender. Bowel sounds are present. No organomegaly appreciated. EXTREMITIES No clubbing or cyanosis. Tremor to the hands. ROD GREASER Awake, alert, and oriented X3. Cranial nerves 2 to 7 intact. There is no fasciculation or atrophy. noted. No focal deficits observed. IMPRESSION: 1. Central and obstructive sleep apnea-hypopnea syndrome. Breathing improved with the usage of CPAP but apnea-hypopnea index in the range which is above my preference. 2. Coronary artery disease. 3. Hypertension. 4. Diabetes mellitus. 5. Status post 5 stent insertion to coronary arteries. 6. History of prostate carcinoma status post prostatectomy. 7. History of depression. 8. History of anxiety. 9. Status post cholecystectomy. 10.Status post tonsillectomy. 11.Status post bilateral cataract surgery. 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 13.Parkinson disease. PLAN: 1. We will fit the patient with Dream Wear full-face mask. My expectation is that it should fix leak. 2. The patient will continue to use CPAP equipment every night for the whole night with the same level of pressure. 3. Followup visit in 2 months. 4. Sleep hygiene with regular time in bed for at least 8 hours. 5. Precautions related to driving. No driving if feeling sleepiness. Thank you very much for allowing me to participate in management of your patient. Sincerely, Hair Persaud MD, PhD, FAASM Diplomat of [employer] Bleaching Machine Operator of [facility] [place] MMODL / IJN: [id number] /
== END ==
LOC: SLEEP 16:31
PROVIDERS: ATTEND Internal Medicine
DX: G47.33 Obstructive sleep apnea (adult) (pediatric) (principal); I25.10 Atherosclerotic heart disease of native coronary artery without angina pectoris; I10 Essential (primary) hypertension; E11.9 Type 2 diabetes mellitus without complications; F32.9 Major depressive disorder, single episode, unspecified; F41.9 Anxiety disorder, unspecified; G20 Parkinson's disease; Z90.49 Acquired absence of other specified parts of digestive tract; Z90.89 Acquired absence of other organs; Z98.890 Other specified postprocedural states; Z86.73 Personal history of transient ischemic attack (TIA), and cerebral infarction without residual deficits; Z85.46 Personal history of malignant neoplasm of prostate; Z90.79 Acquired absence of other genital organ(s); Z95.5 Presence of coronary angioplasty implant and graft; Z99.89 Dependence on other enabling machines and devices; Z79.899 Other long term (current) drug therapy; Z79.82 Long term (current) use of aspirin; Z79.84 Long term (current) use of oral hypoglycemic drugs

== ENCOUNTER 2021-03-01 09:34 | Inpatient (IN) | payer MEDICARE, BC ==
[2021-03-01] MEDS ORDERED: ASPIRIN 81 MG PO STA (09:48)
[2021-03-01 10:16] LABS: Basophils % (A) 1 %; Eosinophils # (A) 0.1 k/uL (0-0.7); Eosinophils % (A) 2 %; HCT 37.3 % (39.0-53.0); HGB 12.8 gm/dL (13.0-17.5); Lymphocytes # (A) 1.4 k/uL (1.0-4.8); Lymphocytes % (A) 27 %; MCH 31.7 pg (25.0-35.0); MCHC 34.3 g/dL (31.0-37.0); MCV 92.6 fL (80.0-100.0); Mean Platelet Volume 9.3; Monocytes # (A) 0.4 k/uL (0-1.0); Monocytes % (A) 7 %; Neutrophils # (A) 3.1 k/uL (1.3-7.7); Neutrophils % (A) 61 %; Platelet Count 132 k/uL (150-450); RBC 4.03 m/uL (4.30-5.90); RDW 13.1 % (11.5-15.5); WBC 5.1 k/uL (3.8-10.6)
--- NOTE | 2021-03-01 10:19 | XR ---
EXAMINATION TYPE: XR chest 2V DATE OF EXAM: 03/01/2021 COMPARISON: 09/24/2017 TECHNIQUE: PA and lateral views submitted. HISTORY: Chest pain FINDINGS: The lungs are clear and there is no pneumothorax, pleural effusion, or focal pneumonia. Hyperinflati on. Arthropathy of the shoulders. Heart size normal with no overt failure. Hypertrophic and degenerat dusty change of the spine. Surgical clips in the abdomen. IMPRESSION: 1. No acute process. Correlate for COPD.
[2021-03-01] MEDS ORDERED: METOPROLOL TARTRATE 12.5 MG TAB PO STA (10:20)
[2021-03-01] MEDS ORDERED: LOSARTAN 50 MG TAB PO STA (10:20)
[2021-03-01] MEDS ORDERED: amLODIPine 5 MG TAB PO STA (10:20)
[2021-03-01] MEDS ORDERED: metFORMIN 500 MG TAB PO STA (10:22)
[2021-03-01 10:30] LABS: INR 0.9 (<1.2); Prothrombin Time 10.2 sec (9.0-12.0)
[2021-03-01 10:37] LABS: ALT 7 U/L (4-49); African American GFR (CKD) >90 (>60 ml/min/1.73 sqM); Albumin 3.9 g/dL (3.5-5.0); Anion Gap 4 mmol/L; Blood Urea Nitrogen 34 mg/dL (9-20); Calcium 9.2 mg/dL (8.4-10.2); Carbon Dioxide 29 mmol/L (22-30); Chloride 105 mmol/L (98-107); Glucose 118 mg/dL (74-99); Lipase 198 U/L (23-300); Non-African American GFR(CKD) 87 (>60 ml/min/1.73 sqM); Sodium 138 mmol/L (137-145); Total Bilirubin 0.8 mg/dL (0.2-1.3); Total Protein 6.7 g/dL (6.3-8.2)
[2021-03-01 10:38] LABS: Partial Thromboplastin Time 19.8 sec (22.0-30.0)
[2021-03-01 10:44] LABS: Potassium 4.1 mmol/L (3.5-5.1)
[2021-03-01 10:45] LABS: AST 24 U/L (17-59); Alkaline Phosphatase 67 U/L (38-126); Magnesium 1.6 mg/dL (1.6-2.3)
--- NOTE | 2021-03-01 11:12 | ED ---
Chest Pain HPI - General Chief Complaint: Chest Pain Stated Complaint: Chest pain Time Seen by Provider: 03/01/21 09:39 Source: patient, EMS, RN notes reviewed Mode of arrival: EMS Limitations: no limitations - History of Present Illness Initial Comments: 85 show male presents emergency Department via EMS with chief complaint chest pain. Patient pain started last night states took nitro alleviated again started this morning took another nitro alleviated symptoms. Patient does have history of multiple cardiac stents multiple risk factors. Patient states currently is asymptomatic he was not given aspirin by EMS. Patient denies any abdominal pain or shortness breath no cough or cold like symptoms. - Related Data Home Medications Medication Instructions Recorded Confirmed Ergocalciferol [Vitamin D2 50,000 unit PO CHOWDHURY 07/04/14 09/24/17 (DRISDOL)] Carbidopa-Levodopa 25-100 mg 1 tab PO BID 09/24/17 09/24/17 [Sinemet 25-100 mg] Dipyridamole-Aspirin 200-25 mg 1 tab PO BID 09/24/17 09/24/17 [Aggrenox 25MG -200MG] PARoxetine HCL [Paxil] 30 mg PO DAILY 09/24/17 09/24/17 metFORMIN HCL [Glucophage] 500 mg PO BID 09/24/17 09/24/17 rOPINIRole HCL [Requip] 0.5 mg PO BID 09/24/17 09/24/17 Previous Rx's Medication Instructions Recorded Aspirin 81 mg PO DAILY #30 chew 09/26/17 Atorvastatin Calcium [Lipitor] 20 mg PO HS #30 tab 09/26/17 Losartan [Cozaar] 50 mg PO BID #60 tab 09/26/17 Metoprolol Tartrate [Lopressor] 25 mg PO BID #60 tab 09/26/17 amLODIPine [Norvasc] 5 mg PO BID #60 tab 09/26/17 Allergies Allergy/AdvReac Type Severity Reaction Status Date / Time hydromorphone HCl AdvReac Nausea & Verified 03/01/21 10:12 [From Dilaudid] Vomiting Review of Systems ROS Statement: Those systems with pertinent positive or pertinent negative responses have been documented in the HPI. ROS Other: All systems not noted in ROS Statement are negative. EKG Findings - EKG Comments: EKG Findings:: EKG performed at 9:38 sinus bradycardia with a rate of 54 AR 172 QRS 118 QT/QTC 44/458 Past Medical History Past Medical History: CVA/TIA, Diabetes Mellitus, Hyperlipidemia, Hypertension, Neurologic Disorder Additional Past Medical History / Comment(s): Parkinsons, CVA with residual decreased sensaion to lt hand. hx essential tremors, bph(sx), past broken lt ankel-no sx required-casted History of Any Multi-Drug Resistant Organisms: None Reported Past Surgical History: Adenoidectomy, Cholecystectomy, Hernia Repair, Prostate Surgery, Tonsillectomy Additional Past Surgical History / Comment(s): cataracts-lens implants, eye lid lift Past Anesthesia/Blood Transfusion Reactions: Postoperative Nausea & Vomiting (PONV) Past Psychological History: No Psychological Hx Reported Past Alcohol Use History: None Reported, Rare Past Drug Use History: None Reported - Past Family History Mother Family Medical History: AFIB, CVA/TIA, Dementia, Hypertension Father Family Medical History: Myocardial Infarction (CT) General Exam Limitations: no limitations General appearance: alert, in no apparent distress Head exam: Present: atraumatic, normocephalic, normal inspection Eye exam: Present: normal appearance, PERRL, EOMI. Absent: scleral icterus, conjunctival injection, periorbital swelling Neck exam: Present: normal inspection. Absent: tenderness, meningismus, lymphadenopathy Respiratory exam: Present: normal lung sounds bilaterally. Absent: respiratory distress, wheezes, rales, rhonchi, stridor Cardiovascular Exam: Present: regular rate, normal rhythm, normal heart sounds. Absent: systolic murmur, diastolic murmur, rubs, gallop, clicks GI/Abdominal exam: Present: soft, normal bowel sounds. Absent: distended, tenderness, guarding, rebound, rigid Course Vital Signs 03/01/21 03/01/21 09:36 10:17 Temperature 97.7 F Pulse Rate 53 L 55 L Respiratory 16 18 Rate Blood Pressure 197/99 180/108 O2 Sat by Pulse 99 98 Oximetry Chest Pain MDM - MDM Patient relief with nitro for his chest pain and initial troponin is indeterminate. Patient will be admitted for cardiac observation, repeat troponin. Disposition Clinical Impression: Chest pain Disposition: ADMITTED IP TO THIS HOSP Condition: Fair Referrals: Maribel Murphy DO [Primary Care Provider] - 1-2 days
[2021-03-01] MEDS ORDERED: NITROGLYCERIN SL TABS 0.4 MG TAB SUBLINGUAL PRN (12:07)
[2021-03-01] MEDS: metFORMIN 500 MG TAB PO SCH (16:20)
[2021-03-01] MEDS: PARoxetine 20 MG TAB PO SCH (16:20)
[2021-03-01] MEDS: hydrALAZINE HCL 20 MG/ML 1 ML VIAL IVP PRN (16:33)
--- NOTE | 2021-03-01 17:11 | P.CRDCN ---
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 We requested to see the patient for chest discomfort. The patient so shaheed is a poor historian and the history was taken from the daughter who was admitted side. For the last few days the patient has been experiencing discomfort mainly in the middle of the chest as well as epigastric area. The discomfort was not radiating to his arms or neck or shoulders or back and was not associated with any sweating or shortness of breath or dizziness or lightheadedness or presyncope or syncope. 2 sets of cardiac enzymes came in to be unremarkable with the EKG showed sinus rhythm was sinus bradycardia and ST changes seems to be diffuse. Please note that the patient's blood pressure came in to be elevated when he presented to the hospital. His systolic pressure was almost 200 mmHg. He was on losartan as well as metoprolol as well as Norvasc. I'm going to increase the dose of Norvasc 10 mg by mouth daily and continue the current dose of losartan as well as beta rojelio and add diuretics to the current medical regimen. We will follow-up with the third set of serial cardiac enzymes. Meanwhile we'll continue monitor and manage the blood pressure. An echocardiogram will be performed. 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 hx essential tremors, bph(sx), past broken lt ankel-no sx required-casted History of Any Multi-Drug Resistant Organisms: None Reported Past Surgical History: Adenoidectomy, Cholecystectomy, Hernia Repair, Prostate Surgery, Tonsillectomy Additional Past Surgical History / Comment(s): cataracts-lens implants, eye lid lift Past Anesthesia/Blood Transfusion Reactions: Postoperative Nausea & Vomiting (PONV) Past Psychological History: No Psychological Hx Reported Past Alcohol Use History: None Reported, Rare Past Drug Use History: None Reported - Past Family History Mother Family Medical History: AFIB, CVA/TIA, Dementia, Hypertension Father Family Medical History: Myocardial Infarction ([place]) Medications and Allergies Home Medications Medication Instructions Recorded Confirmed Type Carbidopa-Levodopa 25-100 mg 1 tab PO TID@0800,1200,1600 09/24/17 03/01/21 History [Sinemet 25-100 mg] metFORMIN HCL [Glucophage] 750 mg PO DAILY@0800 09/24/17 03/01/21 History rOPINIRole HCL [Requip] 0.5 mg PO DAILY@0800 09/24/17 03/01/21 History Ascorbic Acid [Vitamin C] 500 mg PO DAILY@1200 03/01/21 03/01/21 History Aspirin EC [Ecotrin Low Dose] 81 mg PO DAILY 03/01/21 03/01/21 History Atorvastatin Calcium [Lipitor] 20 mg PO MOWEFR@199903/01/21 03/01/21 History Carbidopa/Levodopa [Sinemet 25-100 1 tab PO HS@1999 PRN 03/01/21 03/01/21 H istory mg Tablet] Cholecalciferol [Vitamin D3 (25 50 mcg PO DAILY@1200 03/01/21 03/01/21 History Mcg = 1000 Iu)] Clopidogrel Bisulfate [Plavix] 75 mg PO DAILY 03/01/21 03/01/21 History Cyanocobalamin (Vitamin B-12) 1,000 mcg PO DAILY@1200 03/01/21 03/01/21 History [Vitamin B-12] Donepezil HCl [Aricept] 5 mg PO HS 03/01/21 03/01/21 History Famotidine [Pepcid] 20 mg PO BID@0800,199903/01/21 03/01/21 History Isosorbide Mononitrate [Ismo] 10 mg PO HS 03/01/21 03/01/21 History Losartan [Cozaar] 50 mg PO DAILY@0800 03/01/21 03/01/21 History Metoprolol Tartrate [Lopressor] 12.5 mg PO DAILY@1200 03/01/21 03/01/21 History Mirtazapine 7.5 mg PO HS@199903/01/21 03/01/21 History PARoxetine [Paxil] 20 mg PO DAILY@1600 03/01/21 03/01/21 History Ubidecarenone [Co Q-10] 100 mg PO DAILY@1200 03/01/21 03/01/21 History amLODIPine [Norvasc] 5 mg PO DAILY 03/01/21 03/01/21 History metFORMIN HCL [Glucophage] 500 mg PO DAILY@1600 03/01/21 03/01/21 History rOPINIRole HCL [Requip] 1 mg PO HS@2000 03/01/21 03/01/21 History Allergies Allergy/AdvReac Type Severity Reaction Status Date / Time hydromorphone HCl AdvReac Nausea & Verified 03/01/21 10:12 [From Dilaudid] Vomiting Physical Exam Vitals: Vital Signs Temp Pulse Resp BP Pulse Ox 03/01/21 16:12 59 L 18 192/91 94 L 03/01/21 12:42 54 L 16 183/98 98 03/01/21 11:00 53 L 18 181/94 97 03/01/21 10:17 55 L 18 180/108 98 03/01/21 09:36 97.7 F 53 L 16 197/99 99 Intake and Output 03/01/21 03/01/21 03/01/21 06:59 14:59 22:59 Output Total 700 200 Balance -700 -200 Output: Urine 700 200 Other: Weight 63.503 kg - Constitutional General appearance: no acute distress - Respiratory Respiratory: bilateral: diminished - Cardiovascular Rhythm: regular Heart sounds: normal: S1, S2 Abnormal Heart Sounds: systolic murmur Results 03/01/21 09:49 03/01/21 09:49 Cardiac Enzymes 03/01/21 03/01/21 03/01/21 Range/Units 09:49 09:49 12:43 AST 24 (17-59) U/L Troponin I 0.031 0.012 (0.000-0.034) ng/mL 03/01/21 Range/Units 15:33 AST (17-59) U/L Troponin I 0.018 (0.000-0.034) ng/mL Coagulation 03/01/21 Range/Units 09:49 PT 10.2 (9.0-12.0) sec APTT 19.8 L (22.0-30.0) sec CBC 03/01/21 Range/Units 09:49 WBC 5.1 (3.8-10.6) k/uL RBC 4.03 L (4.30-5.90) m/uL Hgb 12.8 L (13.0-17.5) gm/dL Hct 37.3 L (39.0-53.0) % Plt Count 132 L (150-450) k/uL Comprehensive Metabolic Panel 03/01/21 Range/Units 09:49 Sodium 138 (137-145) mmol/L Potassium 4.1 (3.5-5.1) mmol/L Chloride 105 (98-107) mmol/L Carbon Dioxide 29 (22-30) mmol/L BUN 34 H (9-20) mg/dL Creatinine 0.68 (0.66-1.25) mg/dL Glucose 118 H (74-99) mg/dL Calcium 9.2 (8.4-10.2) mg/dL AST 24 (17-59) U/L ALT 7 (4-49) U/L Alkaline Phosphatase 67 (38-126) U/L Total Protein 6.7 (6.3-8.2) g/dL Albumin 3.9 (3.5-5.0) g/dL Current Medications Generic Name Dose Route Start Last Admin Trade Name Freq PRN Reason Stop Dose Admin Amlodipine Besylate 10 mg 03/02/21 09:00 Amlodipine 10 Mg Tab PO DAILY [facility] Ascorbic Acid 500 mg 03/02/21 12:00 Ascorbic Acid 500 Mg Tab PO DAILY@1200 [facility] Aspirin 325 mg 03/02/21 09:00 Aspirin 325 Mg Tab PO DAILY [facility] Atorvastatin Calcium 20 mg 03/01/21 20:00 Atorvastatin 20 Mg Tab PO MOWEFR@1999 [facility] Carbidopa/Levodopa 1 each 03/01/21 16:00 Carbidopa-Levodopa 25-100 Mg 1 Each Tab PO TID@0800,1200,1600 [facility] Carbidopa/Levodopa 1 each 03/01/21 20:00 Carbidopa-Levodopa 25-100 Mg 1 Each Tab PO HS@2000 PRN tremors Cholecalciferol 50 mcg 03/02/21 12:00 Cholecalciferol 25 Mcg (1000 Iu) Tablet PO DAILY@1200 [facility] Clopidogrel Bisulfate 75 mg 03/02/21 09:00 Clopidogrel 75 Mg Tab PO DAILY [facility] Cyanocobalamin 1,000 mcg 03/02/21 12:00 Cyanocobalamin 500 Mcg Tab PO DAILY@1200 [facility] Donepezil HCl 5 mg 03/01/21 21:00 Donepezil 5 Mg Tab PO HS [facility] Famotidine 20 mg 03/01/21 20:00 Famotidine 20 Mg Tab PO BID@0800,2000 [facility] Hydralazine HCl 10 mg 03/01/21 16:28 03/01/21 16:33 Hydralazine Hcl 20 Mg/Ml 1 Ml Vial IVP 10 mg Q4HR PRN Administration Blood Pressure - High Isosorbide Mononitrate 10 mg 03/01/21 21:00 Isosorbide Mononitrate 10 Mg Tab PO HS [facility] Metformin HCl 750 mg 03/02/21 08:00 Metformin 500 Mg Tab PO DAILY@0800 [facility] Metformin HCl 500 mg 03/01/21 16:00 03/01/21 16:20 Metformin 500 Mg Tab PO 500 mg DAILY@1600 [facility] Administration Metoprolol Tartrate 12.5 mg 03/02/21 12:00 Metoprolol Tartrate 12.5 Mg Tab PO DAILY@1200 [facility] Mirtazapine 7.5 mg 03/01/21 20:00 Mirtazapine 15 Mg Tab PO HS@2000 [facility] Nitroglycerin 0.4 mg 03/01/21 12:07 Nitroglycerin Sl Tabs 0.4 Mg Tab SUBLINGUAL Q5M PRN Chest Pain Paroxetine HCl 20 mg 03/01/21 16:00 03/01/21 16:20 Paroxetine 20 Mg Tab PO 20 mg DAILY@1600 [facility] Administration Ropinirole HCl 1 mg 03/01/21 20:00 Ropinirole Hcl 1 Mg Tab PO HS@2000 [facility] Ropinirole HCl 0.5 mg 03/02/21 08:00 Ropinirole Hcl 0.25 Mg Tab PO DAILY@0800 [facility] Intake and Output 03/01/21 03/01/21 03/01/21 06:59 14:59 22:59 Output Total 700 200 Balance -700 -200 Output: Urine 700 200 Other: Weight 63.503 kg Patient Weight 03/02/21 06:59 Weight 63.503 kg 03/01/21 09:49 03/01/21 09:49 Assessment and Plan Assessment: Assessment #1 hypertension emergency #2 chest discomfort likely secondary to the above #3 CAD with prior stenting #4 history of stroke #5 multiple comorbid conditions Plan #1 rule out acute coronary event #2 rule out obstructive CAD #3 the chest discomfort is likely secondary to the uncontrolled blood pressure #4 increase the dose of Norvasc #5 add Dyazide diuretics to the current medical regimen #6 obtain an echo was Doppler We will continue following up with the patient
[2021-03-01] MEDS: CARBIDOPA-LEVODOPA 25-100 MG 1 EACH TAB PO SCH (18:05)
[2021-03-01] MEDS ORDERED: ATORVASTATIN 20 MG TAB PO SCH (20:00)
[2021-03-01] MEDS ORDERED: CARBIDOPA-LEVODOPA 25-100 MG 1 EACH TAB PO PRN (20:00)
[2021-03-01] MEDS: FAMOTIDINE 20 MG TAB PO SCH (22:18)
[2021-03-01] MEDS: MIRTAZAPINE 15 MG TAB PO SCH (22:18)
[2021-03-01] MEDS: ISOSORBIDE MONONITRATE 10 MG TAB PO SCH (22:19)
[2021-03-01] MEDS: DONEPEZIL 5 MG TAB PO SCH (22:19)
[2021-03-02] MEDS ORDERED: hydrALAZINE HCL 25 MG TAB PO PRN (02:35)
[2021-03-02] MEDS: hydrALAZINE HCL 20 MG/ML 1 ML VIAL IVP PRN (02:40)
[2021-03-02 08:05] LABS: Glucose,Whole Blood 147 mg/dL (75-99)
[2021-03-02] MEDS ORDERED: amLODIPine 5 MG TAB PO SCH (09:00)
[2021-03-02] MEDS ORDERED: LOSARTAN 50 MG TAB PO SCH (09:00)
[2021-03-02] MEDS ORDERED: DOXAZOSIN 1 MG TAB PO SCH (09:00)
[2021-03-02] MEDS ORDERED: DOXAZOSIN 2 MG TAB PO SCH ×2 (09:00→21:00)
[2021-03-02] MEDS: CARBIDOPA-LEVODOPA 25-100 MG 1 EACH TAB PO SCH ×3 (09:18→16:57)
[2021-03-02] MEDS: FAMOTIDINE 20 MG TAB PO SCH ×2 (09:18→21:05)
[2021-03-02] MEDS: CHLORTHALIDONE 25 MG TAB PO SCH (09:18)
[2021-03-02] MEDS: metFORMIN 500 MG TAB PO SCH ×2 (09:18→16:57)
[2021-03-02] MEDS: CLOPIDOGREL 75 MG TAB PO SCH (09:19)
[2021-03-02] MEDS: ASPIRIN 325 MG TAB PO SCH (09:19)
[2021-03-02] MEDS: amLODIPine 10 MG TAB PO SCH (09:19)
--- NOTE | 2021-03-02 10:22 | P.PN ---
Subjective Progress Note Date: 03/02/21 Principal diagnosis: Hypertension emergency The patient is an 85-year-old gentleman was coronary artery disease and prior stenting with unknown details as well as history of stroke and also multiple comorbid conditions was brought by a family member with chest discomfort and salima vated blood pressure. He was diagnosed with hypertension emergency. The patient was seen this morning. Apparently he is confused and he is not oriented 3. No indication that he is experiencing chest pain at this point even though he is difficult to interview. The pressure slightly improved but not under well control. I'm going to increase the dose of losartan from 50 mg by mouth daily 200 mg by mouth daily. Yesterday he was started on chlorthalidone and also yesterday I did increase the dose of amlodipine to 10 mg by mouth daily. Objective - Vital Signs Vital signs: Vital Signs Temp 98.3 F 03/02/21 07:00 Pulse 78 03/02/21 07:00 Resp 17 03/02/21 07:00 BP 173/84 03/02/21 07:00 Pulse Ox 97 03/02/21 07:00 Intake & Output 03/01/21 03/02/21 03/02/21 18:59 06:59 18:59 Output Total 1610 250 Balance -1610 -250 Weight 63.503 kg 63.503 kg Output: Urine 1610 250 Other: # Voids 4 1 # Bowel Movements 1 - Constitutional General appearance: Present: no acute distress - Respiratory Respiratory: bilateral: diminished - Cardiovascular Rhythm: regular Heart sounds: normal: S1, S2 - Labs CBC & Chem 7: 03/01/21 09:49 03/01/21 09:49 Labs: Abnormal Lab Results - Last 24 Hours (Table) 03/01/21 03/01/21 03/02/21 Range/Units 09:49 09:49 08:03 APTT 19.8 L (22.0-30.0) sec BUN 34 H (9-20) mg/dL Glucose 118 H (74-99) mg/dL POC Glucose (mg/dL) 147 H (75-99) mg/dL Assessment and Plan Assessment: Assessment #1 hypertension emergency #2 chest discomfort likely secondary to the above #3 CAD with prior stenting #4 history of stroke #5 change in mental status Plan #1 acute coronary syndrome was ruled out #3 the chest discomfort has resolved #3 increase the dose of losartan #4 continue hydralazine when necessary #5 follow-up with the patient
[2021-03-02 11:04] LABS: Chol/HDL Ratio 2.28 Ratio; LDL Cholesterol,Calculated 77.8 mg/dL (0.0-131.0); VLDL Calculation 12.02 mg/dL (5.00-40.00)
[2021-03-02] MEDS ORDERED: NON FORMULARY DRUG (Ubidecarenone [Co Q-10] 100 MG Capsule) PO SCH (12:00)
--- NOTE | 2021-03-02 12:43 | P.HPIM ---
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 hx essential tremors, bph , coronary artery disease status post 5 cardiac stents, status post Prostate Surgery. Patient is poor historian. He thinks this is his house. [place] told him this is a hospital he thinks this is [facility] , he knows is 2020 and he thought the president is Paul Dias. When I asked him why he did come to the hospital he said because everybody coming to the hospital. When asking but was the complaints of your came to the hospital with he answers " I want to poop on a stick". When asked the patient didn't have any pain he says "yes in my butts" but we'll ask him directly if he has chest pain or abdominal pain or headache he denies. He is breathing comfortably. He denies any other complaints Blood pressure is elevated at 198/90, still vitals are stable. Donuts are negative with 0.03, 0.01 and 0.01. Vidal coronavirus nondetected. EKG showing sinus bradycardia at 54 Chest x-ray: No acute process Review of Systems CONSTITUTIONAL: No fever, no malaise, no fatigue. HEENT: No recent visual problems or hearing problems. Denied any sore throat. CARDIOVASCULAR: No orthopnea, PND, no palpitations, no syncope. PULMONARY: No shortness of breath, no cough, no hemoptysis. GASTROINTESTINAL: No diarrhea, no nausea, no vomiting, no abdominal pain. Normoactive bowel sounds. NEUROLOGICAL: No headaches, no weakness, no numbness. HEMATOLOGICAL: Denies any bleeding or petechiae. GENITOURINARY: Denies any burning micturition, frequency, or urgency. MUSCULOSKELETAL/RHEUMATOLOGICAL: Denies any joint pain, swelling, or any muscle pain. ENDOCRINE: Denies any polyuria or polydipsia. 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 hx essential tremors, bph(sx), past broken lt ankel-no sx required-casted, has had 5 cardiac stents History of Any Multi-Drug Resistant Organisms: None Reported Past Surgical History: Adenoidectomy, Cholecystectomy, Hernia Repair, Prostate Surgery, Tonsillectomy Additional Past Surgical History / Comment(s): cataracts-lens implants, eye lid lift Past Anesthesia/Blood Transfusion Reactions: Postoperative Nausea & Vomiting (PONV) Past Psychological History: No Psychological Hx Reported Additional Psychological History / Comment(s): pt lives at [facility]. Smoking Status: Former smoker Past Alcohol Use History: None Reported, Rare Additional Past Alcohol Use History / Comment(s): started smoking at age 15(195) and quit 1979, smoked 1 ppd. Past Drug Use History: None Reported - Past Family History Mother Family Medical History: AFIB, CVA/TIA, Dementia, Hypertension Father Family Medical History: Myocardial Infarction ([place]) Medications and Allergies Home Medications Medication Instructions Recorded Confirmed Type Carbidopa-Levodopa 25-100 mg 1 tab PO TID@0800,1200,1600 09/24/17 03/01/21 History [Sinemet 25-100 mg] metFORMIN HCL [Glucophage] 750 mg PO DAILY@0800 09/24/17 03/01/21 History rOPINIRole HCL [Requip] 0.5 mg PO DAILY@0800 09/24/17 03/01/21 History Ascorbic Acid [Vitamin C] 500 mg PO DAILY@1200 03/01/21 03/01/21 History Aspirin EC [Ecotrin Low Dose] 81 mg PO DAILY 03/01/21 03/01/21 History Atorvastatin Calcium [Lipitor] 20 mg PO MOWEFR@199903/01/21 03/01/21 History Carbidopa/Levodopa [Sinemet 25-100 1 tab PO HS@1999 PRN 03/01/21 03/01/21 History mg Tablet] Cholecalciferol [Vitamin D3 (25 50 mcg PO DAILY@1200 03/01/21 03/01/21 History Mcg = 1000 Iu)] Clopidogrel Bisulfate [Plavix] 75 mg PO DAILY 03/01/21 03/01/21 History Cyanocobalamin (Vitamin B-12) 1,000 mcg PO DAILY@1200 03/01/21 03/01/21 History [Vitamin B-12] Donepezil HCl [Aricept] 5 mg PO HS 03/01/21 03/01/21 History Famotidine [Pepcid] 20 mg PO BID@0800,199903/01/21 03/01/21 History Isosorbide Mononitrate [Ismo] 10 mg PO HS 03/01/21 03/01/21 History Losartan [Cozaar] 50 mg PO DAILY@0800 03/01/21 03/01/21 History Metoprolol Tartrate [Lopressor] 12.5 mg PO DAILY@1200 03/01/21 03/01/21 History Mirtazapine 7.5 mg PO HS@199903/01/21 03/01/21 History PARoxetine [Paxil] 20 mg PO DAILY@1600 03/01/21 03/01/21 History Ubidecarenone [Co Q-10] 100 mg PO DAILY@1200 03/01/21 03/01/21 History amLODIPine [Norvasc] 5 mg PO DAILY 03/01/21 03/01/21 History metFORMIN HCL [Glucophage] 500 mg PO DAILY@1600 03/01/21 03/01/21 History rOPINIRole HCL [Requip] 1 mg PO HS@199903/01/21 03/01/21 History Allergies Allergy/AdvReac Type Severity Reaction Status Date / Time hydromorphone HCl AdvReac Nausea & Verified 03/01/21 10:12 [From Dilaudid] Vomiting Physical Exam Vitals: Vital Signs Temp Pulse Pulse Resp BP BP Pulse Ox 03/02/21 02:00 97.7 F 71 16 198/90 97 03/01/21 22:33 98.3 F 82 16 185/97 100 03/01/21 20:03 70 18 163/89 96 03/01/21 19:28 73 18 164/118 95 03/01/21 17:16 70 18 188/86 97 03/01/21 16:12 59 L 18 192/91 94 L 03/01/21 12:42 54 L 16 183/98 98 03/01/21 11:00 53 L 18 181/94 97 03/01/21 10:17 55 L 18 180/108 98 03/01/21 09:36 97.7 F 53 L 16 197/99 99 Intake and Output 03/01/21 03/02/21 03/02/21 22:59 06:59 14:59 Output Total 1160 Balance -1160 Output: Urine 1160 Other: # Voids 5 4 Weight 63.503 kg -GENERAL: The patient is alert and oriented x1-2 partially, not in any acute distress. Well developed, well nourished. HEENT: Pupils are round and equally reacting to light. EOMI. No scleral icterus. No conjunctival pallor. Normocephalic, atraumatic. No pharyngeal erythema. No thyromegaly. CARDIOVASCULAR: S1 and S2 present. No murmurs, rubs, or gallops. PULMONARY: Chest is clear to auscultation, no wheezing or crackles. ABDOMEN: Soft, nontender, nondistended, normoactive bowel sounds. No palpable organomegaly. MUSCULOSKELETAL: No joint swelling or deformity. EXTREMITIES: No cyanosis, clubbing, or pedal edema. NEUROLOGICAL: Gross neurological examination did not reveal any focal deficits. SKIN: No rashes. No petechiae Results CBC & Chem 7: 03/01/21 09:49 03/01/21 09:49 Labs: Abnormal Lab Results - Last 24 Hours (Table) 03/01/21 03/01/21 03/01/21 Range/Units 09:49 09:49 09:49 RBC 4.03 L (4.30-5.90) m/uL Hgb 12.8 L (13.0-17.5) gm/dL Hct 37.3 L (39.0-53.0) % Plt Count 132 L (150-450) k/uL APTT 19.8 L (22.0-30.0) sec BUN 34 H (9-20) mg/dL Glucose 118 H (74-99) mg/dL Thrombosis Risk Factor Assmnt - Choose All That Apply Each Risk Factor Represents 3 Points: Age 75 years or older Thrombosis Risk Factor Assessment Total Risk Factor Score: 3 Thrombosis Risk Factor Assessment Level: Moderate Risk Assessment and Plan Assessment: possible Chest pain, rule out cardiac causes Hypertension with urgency present on admission. Poor historian and memory problems possible Alzheimer dementia Diabetes mellitus Hypertension Hyperlipidemia History of Parkinson disease History of CVA with residual decreased sensation to the left hand History of essential tremor History of benign prostatic hypertrophy History of coronary artery disease status post 5 stents Status post prostate surgery History of dementia Plan: This is a pleasant 85 years old male who presents because of chest pain.However patient did not specifically complain about chest pain. Continue with aspirin and t other cardiac medication Consults cardiologyOn the case Check echocardiogram Already antihypertensive medication was adjusted, Norvasc increased to 10 mg daily start Patent on doxazosin since patient has prostatic problem Physical therapy for possible placement Labs and medication were reviewed.. Continue same treatment. Continue with sym ptomatic treatment. Resume home medication. Monitor lytes and vitals. DVT and GI prophylaxis. Further recommendations depends on the clinical course of the patient DVT prophylaxis: Subcutaneous heparin GI Prophylaxis: Pepcid PT/OT: Pending Prognosis is guarded
[2021-03-02 12:45] LABS: Glucose,Whole Blood 129 mg/dL (75-99)
[2021-03-02] MEDS: ASCORBIC ACID 500 MG TAB PO SCH (12:54)
[2021-03-02] MEDS: CHOLECALCIFEROL 25 MCG (1000 IU) TABLET PO SCH (12:54)
[2021-03-02] MEDS: CYANOCOBALAMIN 500 MCG TAB PO SCH (12:54)
[2021-03-02] MEDS: METOPROLOL TARTRATE 12.5 MG TAB PO SCH (12:55)
--- NOTE | 2021-03-02 15:00 | ECHOF ---
Referral Reason:CP MEASUREMENTS -------- HEIGHT: 170.2 cm WEIGHT: 63.5 kg BP: RVIDd: 2.5 cm (< 3.3) IVSd: 1.3 cm (0.6 - 1.1) LVIDd: 4.1 cm (3.9 - 5.3) LVPWd: 1.3 cm (0.6 - 1.1) IVSs: 1.5 cm LVIDs: 3.6 cm LVPWs: 1.6 cm LA Diam: 3.7 cm (2.7 - 3.8) Ao Diam: 3.4 cm (2.0 - 3.7) AV Cusp: 0.7 cm (1.5 - 2.6) LA Diam: 4.5 cm (2.7 - 3.8) MV EXCURSION: 14.257 mm (> 18.000) MV EF SLOPE: 125 mm/s (70 - 150) EPSS: 0.6 cm AV maxP.66 mmHg AV meanP.88 mmHg RAP: 5.00 mmHg RVSP: 14.14 mmHg FINDINGS -------- Undetermined rhythm. This was a technically adequate study. The left ventricular size is normal. There is mild concentric left ventricular hypertrophy. Overa ll left ventricular systolic function is low-normal with, an EF between 50 - 55 %. The right ventricle is normal in size. The right atrial size is normal. There is moderate aortic stenosis present. Peak/mean gradient across the Aortic Valve is 43.66mmHg / 20.88mmHg. Can't exclude Bicuspid valve vs fused cusp. Mild mitral regurgitation is present. Mild tricuspid regurgitation present. Right ventricular systolic pressure is normal at < 35 mmHg. There is no pulmonic regurgitation present. There is no pericardial effusion. CONCLUSIONS -------- 1. The left ventricular size is normal. 2. There is mild concentric left ventricular hypertrophy. 3. Overall left ventricular systolic function is low-normal with, an EF between 50 - 55 %. 4. The right ventricle is normal in size. 5. The right atrial size is normal. 6. There is moderate aortic stenosis present. 7. Peak/mean gradient across the Aortic Valve is 43.66mmHg / 20.88mmHg. 8. Can't exclude Bicuspid valve vs fused cusp. 9. Mild mitral regurgitation is present. 10. Mild tricuspid regurgitation present. 11. There is no pericardial effusion. FACULTY NEUROPSYCHOLOGIST: Anca Spence RDCS
[2021-03-02] MEDS: PARoxetine 20 MG TAB PO SCH (16:57)
[2021-03-02 17:55] LABS: Glucose,Whole Blood 156 mg/dL (75-99)
[2021-03-02] MEDS: MIRTAZAPINE 15 MG TAB PO SCH (21:05)
[2021-03-02] MEDS: ISOSORBIDE MONONITRATE 10 MG TAB PO SCH (21:05)
[2021-03-02] MEDS: DONEPEZIL 5 MG TAB PO SCH (21:05)
[2021-03-02 21:24] LABS: Glucose,Whole Blood 134 mg/dL (75-99)
[2021-03-03 07:31] LABS: Glucose,Whole Blood 121 mg/dL (75-99)
[2021-03-03] MEDS: CARBIDOPA-LEVODOPA 25-100 MG 1 EACH TAB PO SCH ×3 (08:04→15:55)
[2021-03-03] MEDS: ASPIRIN 325 MG TAB PO SCH (08:05)
[2021-03-03] MEDS: CHLORTHALIDONE 25 MG TAB PO SCH (08:05)
[2021-03-03] MEDS: metFORMIN 500 MG TAB PO SCH ×2 (08:05→15:55)
[2021-03-03] MEDS: amLODIPine 10 MG TAB PO SCH (08:07)
[2021-03-03] MEDS: CLOPIDOGREL 75 MG TAB PO SCH (08:07)
[2021-03-03] MEDS: FAMOTIDINE 20 MG TAB PO SCH (08:07)
[2021-03-03] MEDS ORDERED: LOSARTAN 50 MG TAB PO SCH (09:00)
[2021-03-03] MEDS: CHOLECALCIFEROL 25 MCG (1000 IU) TABLET PO SCH (11:41)
[2021-03-03] MEDS: ASCORBIC ACID 500 MG TAB PO SCH (11:41)
[2021-03-03] MEDS: CYANOCOBALAMIN 500 MCG TAB PO SCH (11:41)
[2021-03-03] MEDS: METOPROLOL TARTRATE 12.5 MG TAB PO SCH (11:41)
[2021-03-03 11:52] LABS: Glucose,Whole Blood 194 mg/dL (75-99)
--- NOTE | 2021-03-03 12:54 | P.DS ---
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 The patient Hypertension with urgency present on admission. 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 hx essential tremors, bph , coronary artery disease status post 5 cardiac stents, status post Prostate Surgery. Patient is poor historian. He thinks this is his house. [place] told him this is a hospital he thinks this is [facility] , he knows is 2020 and he thought the president is Pauljef Dias. Patient has significant forgetfulness on admission, however he is improved next day but still elements of confusion related to his dementia with little fluctuation but daughter is caring at bedside which is expected when dementia patient comes to the hospital. However is comfortable, he follows commands he knows his daughter name Lis and recognizes her , it looks pleasant. He denies chest pain or dyspnea. No coughing. No abdominal pain or vomiting. He tolerates his diet. Patient was cleared by aquatics instructor for discharge Blood pressure is better controlled upon discharge after increase the dose of Norvasc up to 10 mg daily and adding doxazosin to his regimen, as well as increasing the dose of low Zartan per aquatics instructor 100 MG DAILY. Patient will need to monitor his blood pressure upon discharge Problems and management plan were discussed with the patient and he verbalized understanding and acceptance Patient was found stable and can be discharged home however he needs follow-up as an outpatient. Patient was instructed to follow up with PCP within one week and patient agrees -Gen: patient is a awake alert, confused at baseline, no distress CVS: S1-S2, RRR, no murmur Lungs: B/L CTA, no wheezing Abdomen: soft, no distention, no tenderness, positive bowel sounds Extremity: no leg edema or induration Time spent more than 35 minutes Patient Condition at Discharge: Fair Plan - Discharge Summary New Discharge Prescriptions: No Action rOPINIRole HCL [Requip] 0.5 mg PO DAILY@0800 metFORMIN HCL [Glucophage] 750 mg PO DAILY@0800 Carbidopa-Levodopa 25-100 mg [Sinemet 25-100 mg] 1 tab PO TID@0800,1200,1600 Ascorbic Acid [Vitamin C] 500 mg PO DAILY@1200 Carbidopa/Levodopa [Sinemet 25-100 mg Tablet] 1 tab PO HS@1999 PRN PRN Reason: tremors Cholecalciferol [Vitamin D3 (25 Mcg = 1000 Iu)] 50 mcg PO DAILY@1200 Cyanocobalamin (Vitamin B-12) [Vitamin B-12] 1,000 mcg PO DAILY@1200 Donepezil HCl [Aricept] 5 mg PO HS Famotidine [Pepcid] 20 mg PO BID@0800,2000 Losartan [Cozaar] 50 mg PO DAILY@0800 PARoxetine [Paxil] 20 mg PO DAILY@1600 Ubidecarenone [Co Q-10] 100 mg PO DAILY@1200 Atorvastatin Calcium [Lipitor] 20 mg PO MOWEFR@1999 Metoprolol Tartrate [Lopressor] 12.5 mg PO DAILY@1200 amLODIPine [Norvasc] 5 mg PO DAILY Aspirin EC [Ecotrin Low Dose] 81 mg PO DAILY Clopidogrel Bisulfate [Plavix] 75 mg PO DAILY Isosorbide Mononitrate [Ismo] 10 mg PO HS metFORMIN HCL [Glucophage] 500 mg PO DAILY@1600 Mirtazapine 7.5 mg PO HS@1999 rOPINIRole HCL [Requip] 1 mg PO HS@1999 Discharge Medication List Carbidopa-Levodopa 25-100 mg [Sinemet 25-100 mg] 1 tab PO TID@0800,1200,1600 09/24/17 [History] metFORMIN HCL [Glucophage] 750 mg PO DAILY@0800 09/24/17 [History] rOPINIRole HCL [Requip] 0.5 mg PO DAILY@0800 09/24/17 [History] Ascorbic Acid [Vitamin C] 500 mg PO DAILY@1200 03/01/21 [History] Aspirin EC [Ecotrin Low Dose] 81 mg PO DAILY 03/01/21 [History] Atorvastatin Calcium [Lipitor] 20 mg PO MOWEFR@199903/01/21 [History] Carbidopa/Levodopa [Sinemet 25-100 mg Tablet] 1 tab PO HS@1999 PRN 03/01/21 [History] Cholecalciferol [Vitamin D3 (25 Mcg = 1000 Iu)] 50 mcg PO DAILY@1200 03/01/21 [History] Clopidogrel Bisulfate [Plavix] 75 mg PO DAILY 03/01/21 [History] Cyanocobalamin (Vitamin B-12) [Vitamin B-12] 1,000 mcg PO DAILY@1200 03/01/21 [History] Donepezil HCl [Aricept] 5 mg PO HS 03/01/21 [History] Famotidine [Pepcid] 20 mg PO BID@0800,199903/01/21 [History] Isosorbide Mononitrate [Ismo] 10 mg PO HS 03/01/21 [History] Metoprolol Tartrate [Lopressor] 12.5 mg PO DAILY@119903/01/21 [History] Mirtazapine 7.5 mg PO HS@199903/01/21 [History] PARoxetine [Paxil] 20 mg PO DAILY@1600 03/01/21 [History] Ubidecarenone [Co Q-10] 100 mg PO DAILY@119903/01/21 [History] metFORMIN HCL [Glucophage] 500 mg PO DAILY@1600 03/01/21 [History] rOPINIRole HCL [Requip] 1 mg PO HS@199903/01/21 [History] Doxazosin [Cardura] 2 mg PO HS tab 03/03/21 [Rx] Losartan [Cozaar] 100 mg PO DAILY tab 03/03/21 [Rx] Nitroglycerin Sl Tabs [Nitrostat] 0.4 mg SUBLINGUAL Q5M PRN tab 03/03/21 [Rx] amLODIPine [Norvasc] 10 mg PO DAILY tab 03/03/21 [Rx] Follow up Appointment(s)/Referral(s): Maribel Murphy DO [Primary Care Provider] - 1-2 days Discharge/Stand Alone Forms: Who Do I Call?, Help In The Home, Personal Yard Person
--- NOTE | 2021-03-03 13:50 | PN ---
PROGRESS NOTE This is an elderly gentleman who has been admitted with an episode of atypical chest pain. His troponins have been normal. He is resting comfortably without any symptoms. He also had an issue with elevated blood pressure, but BP control is optimal since Dr. Cooper increased his amlodipine. He is resting comfortably without symptoms. He can be safely discharged on current medical regimen and follow up with his primary doctor. I am recommending that we decrease his aspirin to 81 mg daily, increase activity, and patient can be discharged. Physical exam revealed that vitals are stable. Blood pressure is 146/84, pulse rate is about 64 per minute. He is appears to be in sinus rhythm with mild IVCD, left anterior fascicular block. JVD not evident. S1, S2 heard normally. Short systolic murmur noted at the base. Lungs reveal decent air entry. Abdomen is soft. Lower extremities reveal palpable pulses, no edema. Central nervous system is normal. IMPRESSION: 1. Accelerated hypertension; appears to be much better controlled. 2. History of coronary artery disease with prior stenting; details unclear. 3. History of previous cerebrovascular accident with good recovery. RECOMMENDATIONS: Patient can be discharged on current medications. Reduce aspirin to 81 mg daily. MMODL / IJN: [id number] /
[2021-03-03 14:58] VITALS: BP 123/66; PULSE 59; RESP 17; TEMP 97.9
[2021-03-03] MEDS: PARoxetine 20 MG TAB PO SCH (15:55)
[2021-03-04] MEDS ORDERED: ASPIRIN 81 MG PO SCH (09:00)
== END 2021-03-03 17:38 | disposition home or self-care (01) | DRG 305 ==
LOC: EC 09:34 → 6NMEDSUR 12:14 → OBSVTOIN 03-03 11:06
PROVIDERS: ADMIT Internal Medicine; ATTEND Internal Medicine
DX: I16.1 Hypertensive emergency (principal); R07.89 Other chest pain; E11.9 Type 2 diabetes mellitus without complications; I10 Essential (primary) hypertension; G20 Parkinson's disease; E78.5 Hyperlipidemia, unspecified; I16.0 Hypertensive urgency; Z20.822 Contact with and (suspected) exposure to COVID-19; R00.1 Bradycardia, unspecified; I08.3 Combined rheumatic disorders of mitral, aortic and tricuspid valves; F02.80 Dementia in other diseases classified elsewhere, unspecified severity, without behavioral disturbance, psychotic disturbance, mood disturbance, and anxiety; G25.0 Essential tremor; I25.10 Atherosclerotic heart disease of native coronary artery without angina pectoris; I69.398 Other sequelae of cerebral infarction; R20.8 Other disturbances of skin sensation; N40.0 Benign prostatic hyperplasia without lower urinary tract symptoms; Z79.02 Long term (current) use of antithrombotics/antiplatelets; Z79.82 Long term (current) use of aspirin; Z79.84 Long term (current) use of oral hypoglycemic drugs; Z79.899 Other long term (current) drug therapy; Z82.3 Family history of stroke; Z82.49 Family history of ischemic heart disease and other diseases of the circulatory system; Z87.891 Personal history of nicotine dependence; Z95.5 Presence of coronary angioplasty implant and graft; Z96.1 Presence of intraocular lens; Z98.42 Cataract extraction status, left eye; Z98.41 Cataract extraction status, right eye; Z88.5 Allergy status to narcotic agent; Z87.19 Personal history of other diseases of the digestive system; Z90.49 Acquired absence of other specified parts of digestive tract
CPT/HCPCS: 36415; 71046; 80053; 80061; 83690; 83735; 84484; 85025; 85610; 85730; 87635; 93005; 93306; 99285